=== PATIENT | male | born 2000 | race Caucasian/White ===

== ENCOUNTER 2023-06-28 09:53 | Outpatient (RCR) | payer SELFPAY | END 2023-08-24 15:09 | disposition home or self-care (01) | LOC: PT 09:53 | DX: Z98.890 Other specified postprocedural states (principal) | CPT/HCPCS: 97110; 97161 ==

== ENCOUNTER 2024-06-05 16:34 | Outpatient (OUT) | payer SELFPAY ==
--- NOTE | 2024-06-05 16:47 | XR_ITS ---
[facility] [id number] Patient Name: GENEVIEVE CHUA MRN: [id number] date: 2000 Sex: M Assigned Patient Location: [facility] Current Patient Location: [facility] Accession/Order Number: [id number] Exam Date: 06/05/2024 17:10 Report Date: 06/07/2024 20:03 At the request of: GODWIN PALMER Procedure: XR thoracic spine 2V EXAMINATION: XR cervical spine 2-3V, XR thoracic spine 2V HISTORY: NECK PAIN COMPARISON: No relevant comparison available. FINDINGS: BONES: Normal alignment of the cervical and thoracic vertebral bodies with no acute fracture or spondylolisthesis. No significant degenerative change DISC SPACES: Normal. No significant disc height narrowing, subluxation, or endplate abnormality. PARASPINOUS: Negative. No paraspinous abnormality is seen. OTHER: Negative. XR/XR thoracic spine 2V IMPRESSION: No acute abnormality of the cervical or thoracic spine Electronically authenticated by: MURIEL MENDEZ Date: 06/07/2024 20:03
--- NOTE | 2024-06-05 16:47 | XR_ITS ---
[facility] [id number] Patient Name: GENEVIEVE CHUA MRN: [id number] date: 2000 Sex: M Assigned Patient Location: [facility] Current Patient Location: [facility] Accession/Order Number: [id number] Exam Date: 06/05/2024 17:10 Report Date: 06/07/2024 20:03 At the request of: GODWIN PALMER Procedure: XR cervical spine 2-3V EXAMINATION: XR cervical spine 2-3V, XR thoracic spine 2V HISTORY: NECK PAIN COMPARISON: No relevant comparison available. FINDINGS: BONES: Normal alignment of the cervical and thoracic vertebral bodies with no acute fracture or spondylolisthesis. No significant degenerative change DISC SPACES: Normal. No significant disc height narrowing, subluxation, or endplate abnormality. PARASPINOUS: Negative. No paraspinous abnormality is seen. OTHER: Negative. XR/XR cervical spine 2-3V IMPRESSION: No acute abnormality of the cervical or thoracic spine Electronically authenticated by: MURIEL MENDEZ Date: 06/07/2024 20:03
--- OUTSIDE RECORDS SUMMARY | 2024-06-05 16:53 | XMS_ITS | CCD ---
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 Name Role Phone Pcp, None Primary Care Provider Unavailabl e Provider , Unlisted Primary Care Provider Unav ailable Pcp, None Primary Care Provider UnavailHILDA Lobo Attending Unavailable HILDA MESA Referring Unavailable PCP, NONE Primary Care Unavailable HILDA MESA Attending Unavailable PCP, NONE Primary Care Unavailable HILDA MESA Referring Unavailable HILDA MESA Attending Unavailable HILDA MESA Referring Unavailable PCP, NONE Primary Care Unavailable HILDA MESA Attending Unavailable HILDA MESA Referring Unavailable PCP, NONE Primary Care Unavailable PCP, NONE Primary Care Unavailable HILDA MESA Referring Unavailable HILDA MESA Attending Unavailable CAMILLE LOPEZ Referring Unavailable PCP, NONE Primary Care Unavailable SIOBHAN MANNING Attending Unavailable HILDA MESA Attending Unavailable PCP, NONE Primary Care Unavailable SIOBHAN JAEGER Referring Unavailable HILDA MESA Attending Unavailable HILDA MESA Referring Unavailable PCP, NONE Primary Care Unavailable HILDA MESA Attending Unavailable SIOBHAN JAEGER Referring Unavailable PCP, NONE Primary Care Unavailable HILDA MESA Attending Unavailable HILDA MESA Referring Unavailable PCP, NONE Primary Care Unavailable YANCIURMAN, OSEI Referring Unavailable OSEI ABARCA Attending Unavailable PCP, NONE Primary Care Unavailable HILDA MESA Attending Unavailable HILDA MESA Admitting Unavailable HILDA MESA Referring Unavailable PCP, NONE Primary Care Unavailable SCEURMAN, OSEI Referring Unavailable SCEURMAN, OSEI Attending Unavailable PCP, NONE Primary Care Unavailable SCEURMAN, OSEI Referring Unavailable MERVINMAN, OSEI Attending Unavailable PCP, NONE Primary Care Unavailable HILDA MESA Attending Unavailable HILDA MESA Referring Unavailable PCP, NONE Primary Care Unavailable HILDA MESA Attending Unavailable HILDA MESA Admitting Unavailable PCP, NONE Primary Care Unavailable Medications Current Medications Medication Drug Class(es) Dates Sig (Normalized) Sig (Original) acetaminophen 500 mg oral tablet (3 sources) Start: 05-30-2023 take 1 tablet by mouth every six hours as needed acetaminophen 500 MG tablet Take 1 tablet by mouth every 6 hours as needed for Pain. 30 tablet 0 05/30/2023 Active Start: 05-30-2023 End: 05-30-2023 acetaminophen (TYLENOL) tabl et 975 mg Start: 07-05-2020 End: 07-05-2020 acetaminophen (TYLENOL) tabl et 1,000 mg aspirin 325 mg oral tablet (1 source) Platelet Aggregation Inhibitor, Nonsteroidal Anti-inflammatory Drug Start: 05-30-2023 take 1 tablet by mouth once daily Aspirin 325 MG tablet Take 1 tablet by mouth daily. 21 tablet 0 05/30/2023 Active Start: 05-30-2023 take 1 tablet by sandeep th once daily Aspirin 325 MG tablet Take 1 tablet by mouth daily. 21 tablet 0 05/30/2023 Active cyclobenzaprine hydrochloride 10 mg oral tablet (7 sources) Muscle Relaxant Start: 02-07-2022 End: 05-30-2023 take 1 tablet by mouth three times daily as needed for muscle spasms cyclobenzaprine (FLEXERIL) 10 MG tablet Take 1 tablet by mouth 3 times daily as needed for Muscle spasms. 15 tablet 0 02/07/2022 05/30/2023 Discontinued (Discontinued during inpatient admission) dextromethorphan hydrobromide 2 mg/ml / guaiFENesin 20 mg/ml oral suspension (6 sources) Uncompetitive S-kxmxgm-T-asparta te Receptor Antagonist, Sigma-1 Agonist Start: 02-16-2022 End: 05-30-2023 dextromethorphan-guai fenesin (ROBITUSSIN-DM) 10-100 MG/5ML SYRP Indications: Acute URI , Viral illness Take 10 mLs by mouth every 6 hours as needed for Cough. 236 mL 0 02/16/2022 05/30/2023 Discontinued (Discontinued during inpatient admission) methylPREDNISolone (1 source) Corticosteroid Start: 07-12-2021 End: 02-07-2022 methylPREDNISolone (MEDROL DOSEPAK) 4 MG tablet Indications: Tear of LCL (lateral collateral ligament) of knee, right, subsequent encounter , Strain of distal biceps femoris tendon follow package directions 21 tablet 0 07/12/2021 02/07/2022 Discontinued naproxen 500 mg oral tablet (15 sources) Nonsteroidal Anti-inflammatory Drug Start: 05-30-2023 take 1 tablet by mouth twice daily at mealtime naproxen (NAPROSYN) 500 MG tablet Take 1 tablet by mouth 2 times daily (with meals). 30 tablet 0 05/30/2023 Active Start: 02-09-2023 End: 05-30-2023 take 1 tablet by mouth twice daily at mealtime as needed for pain naproxen (NAPROSYN) 375 MG tablet Take 1 tablet by mouth 2 times daily (with meals). Prn shoulder pain 10 tablet 0 02/09/2023 05/30/2023 Discontinued (Discontinued during inpatient admission) Start: 02-07-2022 take 1 tablet by sandeep th twice daily at mealtime naproxen (NAPROSYN) 375 MG tablet Take 1 tablet by mouth 2 times daily (with meals). 30 tablet 0 02/07/2022 Active Start: 11-12-2019 End: 02-07-2022 take 1 tablet by mouth three times daily naproxen (NAPROSYN) 500 MG tablet Take 1 tablet by mouth three times daily. 15 tablet 0 11/12/2019 02/07/2022 Discontinued Start: 03-23-2019 End: 11-12-2019 take 1 tablet by mouth twice daily naproxen (NAPROSYN) 500 MG tablet Take 1 tablet by mouth two times a day. 15 tablet 0 03/23/2019 11/12/2019 Discontinued omeprazole 20 mg delayed release oral capsule (7 sources) Proton Pump Inhibitor Start: 02-07-2022 End: 05-30-2023 take 1 capsule by mouth once daily omeprazole (PRILOSEC) 20 MG capsule Take 1 capsule by mouth daily. 30 capsule 0 02/07/2022 05/30/2023 Discontinued (Discontinued during inpatient admission) ondansetron 4 mg disintegrating oral tablet (6 sources) Serotonin-3 Receptor Antagonist Start: 05-30-2023 take 1 tablet by mouth every eight hours as needed Ondansetron (ZOFRAN-ODT) 4 MG disintegrating tablet Take 1 tablet by mouth every 8 hours as needed for Nausea and/or Vomiting. Dissolve on tongue then swallow. 20 tablet 0 05/30/2023 Active Start: 07-05-2020 End: 02-07-2022 take 1 tablet by mouth every eight hours as needed for nausea and vomiting Ondansetron (ZOFRAN-ODT) 4 MG disintegrating tablet Take 1 tablet by mouth every 8 hours as needed for Nausea and/or Vomiting. Dissolve on tongue then swallow. 20 tablet 0 07/05/2020 02/07/2022 Discontinued oxyCODONE hydrochloride 5 mg oral tablet (1 source) Opioid Agonist Start: 05-30-2023 End: 06-06-2023 take 1 tablet by mouth every four hours as needed for pain oxyCODONE (ROXICODONE) 5 MG immediate release tablet Indications: Tear of right glenoid labrum, initial encounter Take 1 tablet by mouth every 4 hours as needed for Pain for up to 7 days. 28 tablet 0 05/30/2023 06/06/2023 Active predniSONE 10 mg oral tablet (3 sources) Start: 03-31-2021 take 5 tablets by mouth once daily, then take 3 tablets by mouth once daily predniSONE (DELTASONE) 10 MG tablet 5 tabs po qd x 3 days then 3 tabs po qd x 2 days 21 tablet 0 03/31/2021 Active sennosides, fci 8.6 mg oral tablet (1 source) Start: 05-30-2023 take 1 tablet by mouth once daily Senna (SENOKOT) 8.6 MG Take 1 tablet by mouth daily. 30 tablet 1 05/30/2023 Active Start: 05-30-2023 take 1 tablet by [facility] once daily Senna (SENOKOT) 8.6 MG Take 1 tablet by mouth daily. 30 tablet 1 05/30/2023 Active Completed/Discontinued Medications Medication Drug Class(es) Dates Sig (Normalized) Sig (Original) celecoxib 100 mg oral capsule (1 source) Nonsteroidal Anti-inflammatory Drug Start: 05-30-2023 End: 05-30-2023 celecoxib (CELEBREX) capsule 200 mg Gadoterate Meglumine (DOTAREM) injection 0.1 mL (1 source) Start: 04-02-2023 End: 04-02-2023 Gadoterate Meglumine (DOTAREM) injection 0.1 mL 1 ml ketorolac tromethamine 30 mg/ml cartridge (1 source) Nonsteroidal Anti-inflammatory Drug, Cyclooxygenase Inhibitor Start: 02-07-2022 End: 02-07-2022 Ketorolac (TORADOL) injection 30 mg Start: 02-07-2022 End: 02-07-2022 Ketorolac (TORADOL) injectio n 30 mg 10 ml lidocaine hydrochloride 10 mg/ml injection (1 source) Antiarrhythmic, Amide Local Anesthetic Start: 04-02-2023 End: 04-02-2023 Lidocaine HCl (XYLOCAINE) 1 % injection 5 mL LOCM iohexol (OMNIPAQUE 240 mg/ml) injection 3 mL (1 source) Start: 04-02-2023 End: 04-02-2023 LOCM iohexol (OMNIPAQUE 240 mg/ml) injection 3 mL Problems Active Problems Problem Classification Problem Date Documented Date Episodic/Chronic Joint disorders and dislocations; trauma-related (1 source) Derangement of right knee; Translations: [Unspecified dislocation of right knee, initial encounter] Episodic Nonspecific chest pain (1 source) Chest wall pain; Translations: [Chest wall pain] Episodic Open wounds of head; neck; and trunk (1 source) Laceration without foreign body of left eyelid and periocular area, initial encounter; Translations: [Eyebrow laceration, left, initial encounter] Episodic Other injuries and conditions due to external causes (1 source) Injury of head; Translations: [Injury of head, initial encounter] Episodic Other nervous system disorders (1 source) Other chronic pain; Translations: [Other chronic pain] Onset: 02-09-2023 Chronic Other non-traumatic joint disorders (1 source) Pain in right knee; Translations: [Pain in joint, lower leg] Episodic Other non-traumatic joint disorders (1 source) Tenderness on lateral joint line of knee; Translations: [Pain in right knee] Episodic Other non-traumatic joint disorders (1 source) Unstable knee; Translations: [Other instability, right knee] Episodic Other non-traumatic joint disorders (1 source) Shoulder pain; Translations: [Pain in right shoulder] Episodic Other upper respiratory infections (1 source) Acute upper respiratory infection; Translations: [Acute upper respiratory infection, unspecified] Episodic Residual codes; unclassified (1 source) Other specified postprocedural states; Translations: [Other specified postprocedural states] Onset: 06-07-2023 Episodic Spondylosis; intervertebral disc disorders; other back problems (1 source) Backache; Translations: [Dorsalgia, unspecified] Episodic Superficial injury; contusion (2 sources) Contusion of right hand; Translations: [Contusion of right hand, initial encounter] Episodic Unclassified (1 source) Post-Op Onset: 07-26-2023 Viral infection (1 source) Viral disease; Translations: [Viral infection, unspecified] Episodic Past or Other Problems Problem Classification Problem Date Documented Da te Episodic/Chronic Other non-traumatic joint disorders (1 source) Pain in right shoulder; Translations: [Pain in right shoulder] Onset: 02-27-2023 Episodic Sprains and strains (7 sources) Sprain of ligament of finger; Translations: [Unspecified sprain of right little finger, initial encounter] Onset: 04-25-2023 Episodic Results Test Name Value Interpretation Reference Range Facility XR SHOULDER RIGHT MIN 2 VIEW S (ROUTINE)on 06-07-2023 XR SHOULDER RIGHT MIN 2 VIEWS (ROUTINE) EXAM: XR SHOULDER RIGHT MIN 2 VIEWS (ROUTINE) HISTORY: Other specified postprocedural states: COMPARISON: 02/27/2023 TECHNIQUE: 3 views of the right shoulder FINDINGS: No acute displaced fracture or dislocation. The acromioclavicular joint is normally aligned. No bony destruction. Postsurgical changes noted in the inferior aspect of the glenoid. IMPRESSION: No acute bony abnormality. S/P arthroscopy of right shoulder Normal [facility] [employer] TYPE AND SCREENon 05-30-2023 ABO and Rh group Nom (Bld) Blood group A Rh(D) positive Normal [facility] Comment on above: Performed By: #### [id number] #### [facility] [address] [place] [address] Type and Screen- if not done in [place] 05-30-2023 ABO and Rh group Nom (Bld) Blood group A Rh(D) positive [email or web address] [email or web address] RNA Ab Qn (S) Negative [facility] BASIC METABOLIC PANELon 04-14 Calcium [Mass/Vol] 9.5 mg/dL Normal 8.4-10.4 [facility] Comment on above: Order Comment: PAT Performed By: #### [id number] #### [place] [address] [place] Chloride [Moles/Vol] 98 mmol/L Normal 96-109 [facility] Comment on above: Order Comment: PAT Performed By: #### [id number] #### [facility] [address] CO2 [Moles/Vol] 29 mmol/L Normal 22-30 [facility] Comment on above: Order Comment: PAT Performed By: #### [id number] #### [facility] [address] Creatinine [Mass/Vol] 0.94 mg/dL Normal 0.66-1.25 [facility] Comment on above: Order Comment: PAT Performed By: #### [id number] #### [place] [id number] GLOMERULAR FILTRATION RATE ML/MIN/1.73 SQ M.PREDICTED >90.0 Normal >=60.0 [facility] Comment on above: Order Comment: PAT Result Comment: eGFR calculation based on the Chronic Kidney Disease Epidemiology Collaboration (CKD-EPI) equation refit without adjustment for race. Categories in Chronic Kidney Disease (CKD) Category: GFR(mL/min/1.73m^2) Interpretation: G1* 90 or greater Normal or high G2* 60-89 Mild decrease G3a 45-59 Mild to moderate decrease G3b 30-44 Moderate to severe decrease G4 15-29 Severe decrease G5 14 or less Kidney failure *G1&G2: In the absence of evidence of kidney damage, neither GFR category G1 nor G2 fulfill the criteria for CKD Kidney Int Suppl.2013;3:1-150 Performed By: #### [id number] #### [facility] [address] Glucose [Mass/Vol] 59 mg/dL Low 65-100 [facility] Comment on above: Order Comment: PAT Performed By: #### [id number] #### [facility] [address] [place] [address] [facility] Potassium [Moles/Vol] 4.3 mmol/L Normal 3.6-5.1 [facility] Comment on above: Order Comment: PAT Performed By: #### [id number] #### [facility] [address] [place], [place] [address] Sodium [Moles/Vol] 141 mmol/L Normal 135-147 [facility] Comment on above: Order Comment: PAT Performed By: #### [id number] #### [address] Urea nitrogen [Mass/Vol] 15 mg/dL Normal 8-26 [facility] Comment on above: Order Comment: PAT Performed By: #### [id number] #### [address] CBCon 05-04-2023 Erythrocyte distribution width (RBC) [Ratio] 11.8 % Normal 11.5-14.5 [facility] Comment on above: Order Comment: PAT Performed By: #### [id number] #### [address] Hematocrit (Bld) [Volume fraction] 49.1 % Normal 37.7-51.1 [facility] Comment on above: Order Comment: PAT Performed By: #### [id number] #### [address] Hemoglobin (Bld) [Mass/Vol] 15.9 g/dL Normal 12.8-17.7 [facility] Comment on above: Order Comment: PAT Performed By: #### [id number] #### [address] MCH (RBC) [Entitic mass] 29.6 pg Normal 27.0-34.2 [facility] Comment on above: Order Comment: PAT Performed By: #### [id number] #### [address] MCHC (RBC) [Mass/Vol] 32.4 g/dL Normal 31.4-36.2 [facility] Comment on above: Order Comment: PAT Performed By: #### [id number] #### [address] MCV (RBC) [Entitic vol] 91.4 fL Normal 80.6-99 [facility] Comment on above: Order Comment: PAT Performed By: #### [id number] #### [address] PLATELET COUNT 301 x10*3/uL Normal 150-400 [facility] Comment on above: Order Comment: PAT Performed By: #### 4 [id number] #### [facility] [address] RED BLOOD CELL COUNT 5.37 x10*6/uL Normal 3.70-5.70 [facility] Comment on above: Order Comment: PAT Performed By: #### 4 [id number] #### [facility] [address] WHITE BLOOD CELLS 7.4 x10*3/uL Normal 4.3-10.3 [facility] Comment on above: Order Comment: PAT Performed By: #### 4 [id number] #### [facility] [address] BASIC METABOLIC PANELon 04-13 Has the patient fasted? No Normal [facility] Comment on above: Order Comment: PAT Performed By: #### 4 [id number] #### [facility] [address] MRI ARTHROGRAM SHOULDER RIGH T WITH IV CONTRASTon 04-02-2023 MRI ARTHROGRAM SHOULDER RIGHT WITH IV CONTRAST EXAM: MRI ARTHROGRAM SHOULDER RIGHT WITH IV CONTRAST REASON FOR EXAM: Shoulder pain, labral tear suspected, xray done. TECHNIQUE: Multiplanar, multisequence imaging of the right shoulder was performed following the uneventful intra-articular administration of contrast. See separate arthrogram report for procedure description. COMPARISON: Plain radiograph 02/27/2023. Prior MRI 04/02/2017 FINDINGS: Study mildly degraded by motion. The acromioclavicular joint is congruent. No significant narrowing of the supraspinatus outlet. Small amount of fluid is noted in the subacromial bursa. No significant narrowing of the supraspinatus outlet. The rotator cuff is grossly intact. The extracapsular biceps tendon is within the bicipital groove. Intracapsular biceps tendon is thickened with intermediate signal consistent with tendinosis. No tear identified. The rotator cuff musculature demonstrates symmetric bulk and signal. The humerus is centered on the glenoid. There is abnormal morphology and signal involving the posterior inferior labrum. There may be a chronic fracture deformity of the posterior inferior glenoid. The tear spans from the 9-10:00 position to the 7:00 position. This may have progressed slightly when compared with prior arthrogram. There may be a reverse Hill-Sachs deformity involving the humeral head suggesting prior posterior dislocation. There may also be a chronic Hill-Sachs deformity involving the posterior lateral humeral head. Contrast: Signal also extends into the anterior inferior labrum suggesting tear (series 3, images 9-11). This is new from prior arthrogram study. Normal variant anatomy the anterior superior labrum. The articular cartilage demonstrates low to intermediate grade chondrosis. No intra-articular body identified. The inferior glenohumeral ligament appears intact. The bone marrow signal is without acute fracture. The quadrilateral space is patent. No axillary lymphadenopathy. IMPRESSION: 1. Study mildly degraded by motion. 2. 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 There is slight propagation of the labral tear superiorly. 3. New anterior inferior labral tear. 4. Biceps tendinosis without tear. 5. Intact rotator cuff. 6. Mild subacromial bursitis. Pt c/o pain, subluxation, and catching for several years. Surgery 2014. Pt became very uncomfortable d/t pain. Refused to have additional repeat sequences. Best images possible. Normal [employer] RF Guidance for injection of Jointon 04-02-2023 [facility] Radiology Study observation (narrative) [employer] CT RECON RIGHTon 03-14-2023 CT RECON RIGHT EXAMINATION: CT SHOULDER RIGHT WITHOUT CONTRAST, CT RECON RIGHT HISTORY: Shoulder trauma, instability or dislocation suspected, x-ray done. Shoulder trauma with instability or dislocation suspected. Right shoulder pain. Glenoid labral tear. COMPARISON: Comparison made to right shoulder radiographs dated 02/27/2023. TECHNIQUE: Contiguous transaxial images obtained to the right shoulder without contrast. Coronal and sagittal reformations performed. Additionally, 3-D volume rendered reconstructions of the right shoulder/humeral head performed on a dedicated workstation overseen by radiologist. Dose reduction techniques were achieved by using automated exposure control and/or adjustment of mA and/or kV according to patient size and/or use of iterative reconstruction technique. FINDINGS: There is no acute displaced fracture or dislocation of the right shoulder. There is no osseous Bankart lesion. There is no acute Hill-Sachs deformity. There is mild flattening/concavity suggested at the anteromedial right humeral head, possibly representing an old reverse Hill-Sachs deformity. There is mild flattening/rounding of the right posterior/posteroinfer ior glenoid with subjacent anchor tracks, most consistent with prior posterior labral repair. The right glenohumeral and acromioclavicular joints are normal. Muscle bulk of the right rotator cuff is normal without atrophy or fatty infiltration. Evaluation of the right glenoid labrum is markedly limited on this noncontrast/non-arthro graphic CT examination. MR arthrography or arthroscopy would be more sensitive. IMPRESSION: 1. No acute displaced fracture or dislocation of the right shoulder. 2. No acute Hill-Sachs or osseous Bankart lesion identified. However, there is mild flattening/concavity suggested at the anteromedial right humeral head, possibly representing an old reversal Sachs deformity. Correlate with patient's history of posterior instability/prior posterior dislocation. 3. Mild flattening/rounding of the right posterior/posteroinfer ior glenoid with subjacent anchor tracks, most consistent with sequela of prior posterior instability and posterior labral repair. Correlate with patient's surgical history. 4. Normal muscle bulk of the right rotator cuff. 4. Evaluation of the right glenoid labrum is markedly limited on this nonarthrographic examination. MRI arthrography or arthroscopy would be much more sensitive. Shoulder trauma, instability or dislocation suspected, xray done, Right shoulder pain, Glenoid labral tear, right, initial encounter Normal [facility] CT SHOULDER RIGHT WITHOUT CO NTRASTon 03-14-2023 CT SHOULDER RIGHT WITHOUT CONTRAST EXAMINATION: CT SHOULDER RIGHT WITHOUT CONTRAST, CT RECON RIGHT HISTORY: Shoulder trauma, instability or dislocation suspected, x-ray done. Shoulder trauma with instability or dislocation suspected. Right shoulder pain. Glenoid labral tear. COMPARISON: Comparison made to right shoulder radiographs dated 02/27/2023. TECHNIQUE: Contiguous transaxial images obtained to the right shoulder without contrast. Coronal and sagittal reformations performed. Additionally, 3-D volume rendered reconstructions of the right shoulder/humeral head performed on a dedicated workstation overseen by radiologist. Dose reduction techniques were achieved by using automated exposure control and/or adjustment of mA and/or kV according to patient size and/or use of iterative reconstruction technique. FINDINGS: There is no acute displaced fracture or dislocation of the right shoulder. There is no osseous Bankart lesion. There is no acute Hill-Sachs deformity. There is mild flattening/concavity suggested at the anteromedial right humeral head, possibly representing an old reverse Hill-Sachs deformity. There is mild flattening/rounding of the right posterior/posteroinfer ior glenoid with subjacent anchor tracks, most consistent with prior posterior labral repair. The right glenohumeral and acromioclavicular joints are normal. Muscle bulk of the right rotator cuff is normal without atrophy or fatty infiltration. Evaluation of the right glenoid labrum is markedly limited on this noncontrast/non-arthro graphic CT examination. MR arthrography or arthroscopy would be more sensitive. IMPRESSION: 1. No acute displaced fracture or dislocation of the right shoulder. 2. No acute Hill-Sachs or osseous Bankart lesion identified. However, there is mild flattening/concavity suggested at the anteromedial right humeral head, possibly representing an old reversal Sachs deformity. Correlate with patient's history of posterior instability/prior posterior dislocation. 3. Mild flattening/rounding of the right posterior/posteroinfer ior glenoid with subjacent anchor tracks, most consistent with sequela of prior posterior instability and posterior labral repair. Correlate with patient's surgical history. 4. Normal muscle bulk of the right rotator cuff. 4. Evaluation of the right glenoid labrum is markedly limited on this nonarthrographic examination. MRI arthrography or arthroscopy would be much more sensitive. Shoulder trauma, instability or dislocation suspected, xray done, Right shoulder pain, Glenoid labral tear, right, initial encounter Normal [facility] XR SHOULDER RIGHT MIN 2 VIEW S (ROUTINE)on 02-27-2023 XR SHOULDER RIGHT MIN 2 VIEWS (ROUTINE) EXAM: XR SHOULDER RIGHT MIN 2 VIEWS (ROUTINE) HISTORY: Pain in right shoulder: COMPARISON: 03/15/2017 TECHNIQUE: 4 views of the right shoulder. FINDINGS: No acute displaced fracture or dislocation. The acromioclavicular joint is normally aligned. No bony destruction. IMPRESSION: No acute bony abnormality. Right shoulder pain, appt in office, images taken per dr protocol Normal [facility] XR Hand - right 3 Viewson NO ACUTE FINDINGS. [facility] XR HAND RIGHT MIN 3 VIEW (ROUTINE) 03/16/2022 4:21 AM EDT Indication: punched fan; pain to 5th metacarpal/5th digit Technique: Routine radiographs of the right hand were obtained. Comparison: None. Findings: Visualized osseous structures are normal in alignment and mineralization. No fractures noted. No joint destruction or dislocation. Soft tissues are unremarkable for age. [facility] Ry Gordon, - 03/16/2022 XR HAND RIGHT MIN 3 VIEW (ROUTINE) 03/16/2022 4:21 AM EDT Indication: punched fan; pain to 5th metacarpal/5th digit Technique: Routine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 ARTHREX [id number] Right 1 Implanted ANCHOR KNOTLESS 1.8 FIBERTAK WITH #2 SUTURE STERILE - SNA - [id number] Elverson Knotless 1.8 Fibertak with #2 Suture Sterile NA ARTHREX [id number] Right 1 Implanted Implant Material Name: ANCHOR KNOTLESS 1.8 FIBERTAK WITH #2 SUTURE STERILE - SNA - [id number] Name: ANCHOR KNOTLESS 1.8 FIBERTAK WITH #2 SUTURE STERILE - SNA - [id number] Name: suture anchor, biocomposite pushlock Name: ANCHOR KNOTLESS 1.8 FIBERTAK WITH #2 SUTURE STERILE - SNA - [id number] COMPLICATIONS: None FINDINGS: Recurrent posterior labral tear, anterior inferior labral tear intact biceps anchor DISPOSITION: awakened from anesthesia, extubated and taken to the recovery room in a stable condition, having suffered no apparent untoward event. CONDITION: doing well without problems Name: Abrahan Lawrence : 2000 Date of Surgery: 05/30/2023 Pre Operative Diagnosis: 1. 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 The assistance was felt to be medically necessary for the case due it its complexity, and the requirement for a skilled extra pair of hands due to the technical requirements of the procedure. Anesthesia: General Procedure Start Time: Event Time Procedure/Incision Start 817 Procedure End Time: Event Time Procedure End 1002 EBL: Minimal Implants: 1. 7 Arthrex knotless 1.8 fiber tack anchors 2. 1 bio composite push lock anchor Specimens: None Would Classification: Clean Findings: Recurrent posterior labral tear with evidence of old suture material, anterior inferior labral tear Complications: None Disposition: Hemodynamically stable and extubated and transferred to PACU. Will be discharged to home later today once PACU criteria are met. Indications for Procedure: 22-year-old male who sustained a right shoulder posterior instability event multiple years ago. He subsequently underwent a posterior labral repair. He did well for period of time after this, but had increasing amounts of shoulder pain and instability that progressed. Presented to my office with complaints of anterior and posterior instability. An MRI arthrogram showed recurrent posterior labral tear as well as likely anterior-inferior labral tear. Operative and nonoperative treatment was discussed with the patient, elected to proceed with right shoulder arthroscopy. Description of Procedure: The patient was met in the preoperative holding area. The consent was reviewed with the patient and all questions were answered. Following this, the patient confirmed the correct operative extremity and my initials were placed here. The skin overlying the extremity was evaluated and no rashes, lesions, or concerning signs for infection were identified. The consent was then signed. The anesthesia service met with the patient to discuss their portion of the procedure and consent was obtained for anesthesia. If applicable, a nerve block was offered to the patient for perioperative pain control. Following this, the patient was wheeled back to the operating room and transferred from the hospital cart to the OR table. Anesthesia was induced. Preoperative exam under anesthesia demonstrated humeral head was easily translated over the anterior glenoid rim and would spontaneously reduce and can be translated over the posterior glenoid rim and also spontaneously reduced. Negative sulcus.. Care was then taken to appropriately position the patient and pad all bony prominences and the patient was placed in lateral decubitus position. SCDs were placed onto the non operative lower extremities to help prevent blood clots. Approximately 15 pounds of traction were used, which was let down at the end of the case at approximate 1 and half hours. The appropriate extremity was then prepped with alcohol, hydrogen peroxide and chloroprep and draped in a standard sterile surgical fashion. Anatomic landmarks were identified and marked out to assist in incision planning. Prior to making an incision, a timeout was performed with the nursing and anesthesia staff confirming the correct patient, operative side, procedure, and any safety risks. Prior to skin incision, pre-operative antibiotics 2g of Cefazolin were indicated and confirmed to have been given by anesthesia. A standard posterior portal just inferior and medial to the lateral corner of the acromion was made with an 11 blade. Arthroscope was introduced into the joint. A anterior portal just lateral to the coracoid and entering the rotator interval was made with a spinal needle followed by a smooth cannula. Diagnostic arthroscopy of the shoulder revealed: 1. Biceps Tendon: Intact 2. Labrum: Superior labrum intact, recurrent posterior labral tear extending from the 6:30 position to 10 o'clock position, anterior inferior labral tear extending from the 5:30 position to 2:30 position. Small anterior sublabral foramen. 3. Subscapularis tendon: Intact 4. Glenoid: Fraying of the anterior posterior glenoid cartilage 5. Humeral head: Intact 6. Inferior axillary recess: No loose bodies noted 7. Articular surface of the rotator cuff: Intact with a small Hill-Sachs lesion Following her diagnostic arthroscopy, attention was turned to establishing her portals. We had a high posterior portal for the diagnostic arthroscopy. A low anterior portal just above the subscapularis was then established. An accessory superior lateral portal was then established using a percutaneous technique. The arthroscope was then transferred into this portal for further viewing during the operation. Following this a low posterior working portal was also established. Attention was first turned to the posterior labral repair. A probe easily fell into an interval between the glenoid and labrum, consistent with his recurrent tear. Old suture material was noted in this area which was also subsequently removed. Following this, Bankart elevator was brought in and used to elevate the labrum off the glenoid surface. Complete release was performed. A shaver was then used to debride frayed nonviable labral tissue followed by debridement of the glenoid surface greater bleeding bony surface to assist with labral healing. Following this, curved guide was brought in, and our low posterior anchor was placed at the approximate 6:30 position. Curved suture passer was then used to shuttle the repair stitch through the capsule labral tissue which was subsequently shuttled to the anchor and tensioned. This same maneuver was performed 3 additional times, going proximally up the posterior glenoid to the approximate 10 o'clock position. A total of 4 anchors were placed for a posterior labral repair. Attention was now turned to the anterior labral repair. Bankart elevator was again brought in and used to elevate the anterior inferior labrum. There is a small sublabral foramen around the 2:00 to 1 o'clock position. This was not close down with any of our repair. We have to see the subscapularis muscle belly indicating appropriate release of the anterior labrum. Shaver was brought in again used to debris frayed nonviable anterior labral tissue as well as the glenoid surface to create a bleeding bony surface to assist with tendon healing. Using additional curved suture guide, and her most inferior anchor was initially placed at the 5:30 position. We subsequently were shuttling the repair stitch through this when the shuttle stitch broke. We then subsequently cut the repair stitch, shuttled a suture tape through the anterior-inferior labrum, and subsequently used a push lock as her most inferior anchor which gained good purchase. Following this, and an additional 3 all suture fiber tack anchors were placed heading up the glenoid to the approximate 2:30 position. This then completed the anterior labral repair with again a total of 4 anchors. Following this, final arthroscopic images were taken. Our posterior portal site was closed with #1 Vicryl using a BirdBeak for suture passage. The portal sites were closed with 3-0 nylon. A dressing of Xeroform 4 x 4's ABDs and Medipore tape was then applied to the upper extremity. Extremities and placed into a sling and the patient was awoken from anesthesia and transferred the postanesthesia care in where he is recovering. The use of the 22 modifier is justified in this case due to the fact that it was a revision posterior labral repair with a new anterior labral tear repair. Additionally patient had a large tear extending from anterior to posterior which required additional anchors. This increased operative time as well as technical complexity of the case when compared to a standard labral repair. A count of sharps, needles, ray-juliann and lap sponges was performed at the end of the procedure. The count was correct. No concerns were raised by the operating room staff at the completion of the case. Discharge Summary: Patient was transferred to the postanesthesia care unit where the patient is recovering well. The patient will be discharged home later today. Prescriptions have been sent to the pharmacy for the patient and family to lemon picker after surgery. The patient will follow the anterior and posterior/circumferential labral repair PT protocol. DVT prophylaxis is indicated for this patient and a prescription for aspirin was sent to the pharmacy. The importance of adheres to DVT prophylaxis was stressed to the patient in their prior clinic visit and in the preoperative holding area. Patient will follow up with me in clinic in one week. Disposition: Patient was discharged to home with family after all PACU criteria were met. Hilda Mesa MD x Called, spoke with: Abrahan Left Message Date of Procedure: 05-30-23 Arrival Time: 529 Surgery Time: 729 Place: [facility], main entrance, Registration is to the left. Then proceed to the Second Floor Surgery Waiting Area to check in. Have you tested positive for Covid-19 in the last 4 weeks? Instructions: Please follow the surgeons instructions regarding diet and any other prep prior to surgery. If you did not receive diet instructions, NO solid food after 11 pm and this includes gum, candy, mints, lozenges, or chewing tobacco. Water and Gatorade (EXCLUDING red or orange) is encouraged up to 4 hours before your arrival to surgery. Do not consume alcohol 24 hours prior to you surgery. Refrain from smoking 12 hours prior to your surgery. You can brush your teeth on the morning of your procedure but do not swallow any water. IF the surgeons office or PAT gave you CHG wipes please shower the night before, wait one hour, then apply CHG wipes. DO NOT shower the morning of surgery and reapply CHG wipes. Do not use any body lotion or powder the morning of procedure. Please do not wear make-up. Please do not use hair spray, gel, mouse etc. Wear comfortable and loose clothing. Leave valuables at home except what is needed to take care of any financial obligations you may have. Contact lenses, body piercings and jewelry must be removed prior to procedure. You are allowed two vistors, must be 12 years of age or older, and you must have a bulk delivery driver to and from the hospital as well as a responsible person to stay with you for 24 hours. documented in this encounter [facility] 05-30-2023 Nurse Note Transported to room 2218 at this time per cart, accompanied by this nurse. Cart placed in lowest position, wheels locked, call light given to patient. Report given to and RUE assessed with Shira Verma RN, no changes from previous assessments by this nurse. Surgery waiting room phlebotomist lab assistant informed of patient's OPS room number. Dr. Collier here to assess patient, may transfer to next phase of care when PACU time completed. documented in this encounter [facility] 05-30-2023 Nurse Surgical operation note Transported to room 2218 at this time per cart, accompanied by this nurse. Cart placed in lowest position, wheels locked, call light given to patient. Report given to and RUE assessed with Shira Verma RN, no changes from previous assessments by this nurse. Surgery waiting room phlebotomist lab assistant informed of patient's OPS room number. [facility] 05-30-2023 Nurse Surgical operation note Dr. Collier here to assess patient, may transfer to next phase of care when PACU time completed. [facility] 05-30-2023 Surgery Surgical operation note Brief Procedure Note 05/30/2023,10:28 AM Hilda Mesa PATIENT INFORMATION Name: Abrahan Lawrence : 2000 Procedure Date: 05/30/2023 Event Time Procedure/Incision Start 0818 Event Time Procedure End 1002 Surgeon(s): Hilda Mesa MD PRE-OP DIAGNOSIS: Tear of right glenoid labrum, initial encounter [S43.431A] POST-OP DIAGNOSIS: Right anterior and posterior labral tear Procedure(s) (LRB): right shoulder arthroscopy with anterior and posterior labral repair (Right) ANESTHESIA ASA: I Type: General w/Block (for Post-op Pain Mgmt) Staff: Anesthesiologist: Ria Collier MD HEAD FIELD HOCKEY COACH: Harriet Davis APRN-HEAD FIELD HOCKEY COACH; Douglas Pina APRN-CRNA STAFF: Assistant Passenger Locomotive Engineer: Alberta Sal RN Scrub Person: Vilma Ybarra CST Nurse Float: Shobha Unger RN; Danette Archer RN Height: 6' (1.829 m) Weight:90.4 kg (199 lb 6.4 oz) BMI: Body mass index is 27.04 kg/m . ESTIMATED BLOOD LOSS: Minimal DRAINS: None TOTAL IV FLUIDS: See anesthesia ml SPECIMENS: None IMPLANTS: Implant Name Type Inv. Item Serial No. Power Tool Repair Technician Lot No. LRB No. Used Action ANCHOR KNOTLESS 1.8 FIBERTAK WITH #2 SUTURE STERILE - SNA - [id number] El[employer]on Knotless 1.8 Fibertak with #2 Suture Sterile NA ARTHREX [id number] Right 4 Implanted ANCHOR KNOTLESS 1.8 FIBERTAK WITH #2 SUTURE STERILE - SNA - [id number] [employer]on Knotless 1.8 Fibertak with #2 Suture Sterile NA ARTHREX [id number] Right 2 Implanted suture anchor, biocomposite pushlock NA ARTHREX [id number] Right 1 Implanted ANCHOR KNOTLESS 1.8 FIBERTAK WITH #2 SUTURE STERILE - SNA - [id number] [employer] Knotless 1.8 Fibertak with #2 Suture Sterile NA ARTHREX [id number] Right 1 Implanted Implant Material Name: ANCHOR KNOTLESS 1.8 FIBERTAK WITH #2 SUTURE STERILE - SNA - [id number] Name: ANCHOR KNOTLESS 1.8 FIBERTAK WITH #2 SUTURE STERILE - SNA - [id number] Name: suture anchor, biocomposite pushlock Name: ANCHOR KNOTLESS 1.8 FIBERTAK WITH #2 SUTURE STERILE - SNA - [id number] COMPLICATIONS: None FINDINGS: Recurrent posterior labral tear, anterior inferior labral tear intact biceps anchor DISPOSITION: awakened from anesthesia, extubated and taken to the recovery room in a stable condition, having suffered no apparent untoward event. CONDITION: doing well without problems [facility] 05-30-2023 Surgery Surgical operation note Name: Abrahan Lawrence : 2000 Date of Surgery: 05/30/2023 Pre Operative Diagnosis: 1. 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 The assistance was felt to be medically necessary for the case due it its complexity, and the requirement for a skilled extra pair of hands due to the technical requirements of the procedure. Anesthesia: General Procedure Start Time: Event Time Procedure/Incision Start 817 Procedure End Time: Event Time Procedure End 1002 EBL: Minimal Implants: 1. 7 Arthrex knotless 1.8 fiber tack anchors 2. 1 bio composite push lock anchor Specimens: None Would Classification: Clean Findings: Recurrent posterior labral tear with evidence of old suture material, anterior inferior labral tear Complications: None Disposition: Hemodynamically stable and extubated and transferred to PACU. Will be discharged to home later today once PACU criteria are met. Indications for Procedure: 22-year-old male who sustained a right shoulder posterior instability event multiple years ago. He subsequently underwent a posterior labral repair. He did well for period of time after this, but had increasing amounts of shoulder pain and instability that progressed. Presented to my office with complaints of anterior and posterior instability. An MRI arthrogram showed recurrent posterior labral tear as well as likely anterior-inferior labral tear. Operative and nonoperative treatment was discussed with the patient, elected to proceed with right shoulder arthroscopy. Description of Procedure: The patient was met in the preoperative holding area. The consent was reviewed with the patient and all questions were answered. Following this, the patient confirmed the correct operative extremity and my initials were placed here. The skin overlying the extremity was evaluated and no rashes, lesions, or concerning signs for infection were identified. The consent was then signed. The anesthesia service met with the patient to discuss their portion of the procedure and consent was obtained for anesthesia. If applicable, a nerve block was offered to the patient for perioperative pain control. Following this, the patient was wheeled back to the operating room and transferred from the hospital cart to the OR table. Anesthesia was induced. Preoperative exam under anesthesia demonstrated humeral head was easily translated over the anterior glenoid rim and would spontaneously reduce and can be translated over the posterior glenoid rim and also spontaneously reduced. Negative sulcus.. Care was then taken to appropriately position the patient and pad all bony prominences and the patient was placed in lateral decubitus position. SCDs were placed onto the non operative lower extremities to help prevent blood clots. Approximately 15 pounds of traction were used, which was let down at the end of the case at approximate 1 and half hours. The appropriate extremity was then prepped with alcohol, hydrogen peroxide and chloroprep and draped in a standard sterile surgical fashion. Anatomic landmarks were identified and marked out to assist in incision planning. Prior to making an incision, a timeout was performed with the nursing and anesthesia staff confirming the correct patient, operative side, procedure, and any safety risks. Prior to skin incision, pre-operative antibiotics 2g of Cefazolin were indicated and confirmed to have been given by anesthesia. A standard posterior portal just inferior and medial to the lateral corner of the acromion was made with an 11 blade. Arthroscope was introduced into the joint. A anterior portal just lateral to the coracoid and entering the rotator interval was made with a spinal needle followed by a smooth cannula. Diagnostic arthroscopy of the shoulder revealed: 1. Biceps Tendon: Intact 2. Labrum: Superior labrum intact, recurrent posterior labral tear extending from the 6:30 position to 10 o'clock position, anterior inferior labral tear extending from the 5:30 position to 2:30 position. Small anterior sublabral foramen. 3. Subscapularis tendon: Intact 4. Glenoid: Fraying of the anterior posterior glenoid cartilage 5. Humeral head: Intact 6. Inferior axillary recess: No loose bodies noted 7. Articular surface of the rotator cuff: Intact with a small Hill-Sachs lesion Following her diagnostic arthroscopy, attention was turned to establishing her portals. We had a high posterior portal for the diagnostic arthroscopy. A low anterior portal just above the subscapularis was then established. An accessory superior lateral portal was then established using a percutaneous technique. The arthroscope was then transferred into this portal for further viewing during the operation. Following this a low posterior working portal was also established. Attention was first turned to the posterior labral repair. A probe easily fell into an interval between the glenoid and labrum, consistent with his recurrent tear. Old suture material was noted in this area which was also subsequently removed. Following this, Bankart elevator was brought in and used to elevate the labrum off the glenoid surface. Complete release was performed. A shaver was then used to debride frayed nonviable labral tissue followed by debridement of the glenoid surface greater bleeding bony surface to assist with labral healing. Following this, curved guide was brought in, and our low posterior anchor was placed at the approximate 6:30 position. Curved suture passer was then used to shuttle the repair stitch through the capsule labral tissue which was subsequently shuttled to the anchor and tensioned. This same maneuver was performed 3 additional times, going proximally up the posterior glenoid to the approximate 10 o'clock position. A total of 4 anchors were placed for a posterior labral repair. Attention was now turned to the anterior labral repair. Bankart elevator was again brought in and used to elevate the anterior inferior labrum. There is a small sublabral foramen around the 2:00 to 1 o'clock position. This was not close down with any of our repair. We have to see the subscapularis muscle belly indicating appropriate release of the anterior labrum. Shaver was brought in again used to debris frayed nonviable anterior labral tissue as well as the glenoid surface to create a bleeding bony surface to assist with tendon healing. Using additional curved suture guide, and her most inferior anchor was initially placed at the 5:30 position. We subsequently were shuttling the repair stitch through this when the shuttle stitch broke. We then subsequently cut the repair stitch, shuttled a suture tape through the anterior-inferior labrum, and subsequently used a push lock as her most inferior anchor which gained good purchase. Following this, and an additional 3 all suture fiber tack anchors were placed heading up the glenoid to the approximate 2:30 position. This then completed the anterior labral repair with again a total of 4 anchors. Following this, final arthroscopic images were taken. Our posterior portal site was closed with #1 Vicryl using a BirdBeak for suture passage. The portal sites were closed with 3-0 nylon. A dressing of Xeroform 4 x 4's ABDs and Medipore tape was then applied to the upper extremity. Extremities and placed into a sling and the patient was awoken from anesthesia and transferred the postanesthesia care in where he is recovering. The use of the 22 modifier is justified in this case due to the fact that it was a revision posterior labral repair with a new anterior labral tear repair. Additionally patient had a large tear extending from anterior to posterior which required additional anchors. This increased operative time as well as technical complexity of the case when compared to a standard labral repair. A count of sharps, needles, ray-juliann and lap sponges was performed at the end of the procedure. The count was correct. No concerns were raised by the operating room staff at the completion of the case. Discharge Summary: Patient was transferred to the postanesthesia care unit where the patient is recovering well. The patient will be discharged home later today. Prescriptions have been sent to the pharmacy for the patient and family to lemon picker after surgery. The patient will follow the anterior and posterior/circumferential labral repair PT protocol. DVT prophylaxis is indicated for this patient and a prescription for aspirin was sent to the pharmacy. The importance of adheres to DVT prophylaxis was stressed to the patient in their prior clinic visit and in the preoperative holding area. Patient will follow up with me in clinic in one week. Disposition: Patient was discharged to home with family after all PACU criteria were met. Hilda Mesa MD [facility] 05-30-2023 Hospital Discharg e instructions Nas Mackey RN - 05/30/2023 7:18 AM EDT POST-OPERATIVE / DISCHARGE INSTRUCTIONS Please call Dr. Mesa with any post-operative questions or concerns at [phone]. If you leave a voicemail, he will return your call as soon as possible. PROCEDURE: Shoulder arthroscopy and Labral Repair PAIN MANAGEMENT The most commonly prescribed pain medications after surgery are opioid or narcotic medications such as Oxycodone, Oxycontin, Morphine, Dilaudid, Hydromorphone, Fentanyl, Hydrocodone, [place], Percocet, and Lortab. These medications are synthetic forms of heroin. Opioid medications are highly addictive and dangerous. Over 130 people of opioid overdose daily, with over 47,000 Americans dying in 2017 alone from opioid overdose. Many of these individuals first encountered opioids through a prescription. 10% of patients who are prescribed an opioid will go on to abuse these medications or become dependent upon them and as many as 5% of those who abuse these medications will go on to use heroin. Patients are generally uncomfortable after surgery. Surgery is never expected to be pain free. Dr. Mesa does not like his patients to have pain, but also asks patients to recognize that pain after surgery is expected, normal, and temporary. Pain after surgery should improve every hour and every day, while an opioid addiction may not go away. Many blinded, randomized studies have been conducted showing that the combination of Tylenol, an anti-inflammatory medication like Ibuprofen or Aleve, and ice provides equivalent pain relief to opioid pain medications. Outside of the [place], patients who undergo surgery are not prescribed opioid medications and have acceptable pain control with a combination of Tylenol, an anti-inflammatory medication, and ice. Dr. Mesa regularly prescribes opioids as he does not want his patients to be uncomfortable, but will only prescribe small doses and in small numbers of pills. These medications will not be prescribed before surgery or after [address] Mesa asks patients to avoid using opioid medications if possible because they are addictive and dangerous. Please use Tylenol, an anti-inflammatory, and ice before using an opioid pain medicine. Do not drive or make important business decisions while using narcotics. Common side effects of the narcotics include nausea, vomiting, drowsiness, constipation, and difficulty urinating. If you experience constipation, use an over the counter laxative. Minimize the risk of constipation by staying well hydrated and including fiber in your diet. If you have difficulty urinating, try spending a little time out of bed on the crutches. If it is not possible for you to urinate and you become uncomfortable, it is best if you go to the Emergency Room to get catheterized If you had a nerve block done by anesthesia, please contact the anesthesia department with questions. When the nerve block wears off, pain can increase so you may notice you will need more oral narcotics at that time. WOUND CARE Please leave dressing on until you are seen in clinic. There may be a small amount of bleeding and/or fluid leaking at the surgical site. This is normal. There will actually be more swelling on days 1-3 than you had the day of surgery. This is normal. SLING MANAGEMENT Your sling is to be on at all times for the first 4-6 weeks after surgery. This means wearing your sling while sleeping. Do not discontinue your sling until told to do so by Dr. Mesa. SLEEPING Again, you need to sleep in your sling after surgery. It may be helpful to sleep in a more upright position as in a reclining chair or propped up on pillows. It is typical to experience the most pain and discomfort at night after shoulder surgery. DRIVING You cannot drive until you have discontinued narcotic pain medications, and feel fully able to control your vehicle in an emergency. You must have good control of your surgical extremity to decrease risk of harming others. If you decide to operate a motor vehicle, you assume all risks and accept possible liability should an accident occur. Please contact our office should you have any questions about whether or not you can return to driving. You will not begin formal physical therapy until at least 2 weeks after surgery. Do not begin any formal therapy or receive any massage/chiropractic treatments until Dr. Mesa has cleared you to do so. We will provide you with a prescription for physical therapy when appropriate to begin. CONCERNS/QUESTIONS It is important to call our office, hospital on-call physician, your primary care doctor s office, an emergency room or dial immediately if any of the following occur: If you experience any adverse reactions to your pain medications. Fever (101 or greater), shaking, chills or sweats/night sweats Increased redness, swelling, warmth or pain in/around the incisions, non-clear drainage from the incision Calf swelling, redness, pain or warmth, cramps in your lower legs, loss of sensation to foot/toes, blue limb Chest pain, chest tightness, shortness of breath, difficulty breathing, heart palpitations Inability to have a bowel movement after 3 days and/or inability to urinate after 1 day Uncontrolled nausea/vomiting A fall or new injury to the surgical site If any of these concerns occur after-hours, please call [phone] and ask to speak to the on-call physician or go to the Emergency Room. IMPORTANT PHONE NUMBERS Office Number: [phone] Assembly Technician: [phone] After Hours Emergency Contact: . If you are unable to reach a nurse via this number, or have worsening symptoms, please head immediately to the emergency room. [facility] Physical Therapy - Ortho/Neuro Rehab: [phone] [facility] Physical Therapy - Center for Occupational and Outpatient Rehab: [phone] The following attachments cannot be sent through Care Everywhere.Sedation ([place])documented in this encounter [facility] 05-30-2023 History and physical note Abrahan Lawernce is an 22 y.o. male. Date of Service: 05/30/2023 Chief Complaint: Right shoulder pain History of present illness 22-year-old male presents today with right shoulder pain and instability. MRI physical examination consistent with labral tear. Patient presents today for shoulder arthroscopy. No significant changes noted Past Medical History: Past Medical History: Diagnosis Date ADHD (attention deficit hyperactivity disorder) Hypertension Past Surgical History: Procedure Laterality Date ARTHROSCOPY SHOULDER Right 10/19/2014 RIGHT SHOULDER ARTHROSCOPIC POSTERIOR LABRAL REPAIR, LIMITED DEBRIDEMENT OF GLENOHUMERAL JOINT performed by Chip Pfeiffer MD at [facility] OR No current facility-administered medications on file prior to encounter. Current Outpatient Medications on File Prior to Encounter Medication Sig Dispense Refill cyclobenzaprine (FLEXERIL) 10 MG tablet Take 1 tablet by mouth 3 times daily as needed for Muscle spasms. (Patient not taking: Reported on 02/27/2023) 15 tablet 0 dextromethorphan-guaifenesin (ROBITUSSIN-DM) 10-100 MG/5ML SYRP Take 10 mLs by mouth every 6 hours as needed for Cough. (Patient not taking: Reported on 02/27/2023) 236 mL 0 naproxen (NAPROSYN) 375 MG tablet Take 1 tablet by mouth 2 times daily (with meals). Prn shoulder pain (Patient not taking: Reported on 02/27/2023) 10 tablet 0 omeprazole (PRILOSEC) 20 MG capsule Take 1 capsule by mouth daily. (Patient not taking: Reported on 02/27/2023) 30 capsule 0 Immunization History Administered Date(s) Administered Tdap 07/05/2020 Allergies: No Known Allergies ROS Social History Socioeconomic History Marital status: Single Tobacco Use Smoking status: Every Day Packs/day: 0.25 Types: Cigarettes, E-Cig/Vaping Smokeless tobacco: Never Vaping Use Vaping Use: Every day Substances: Nicotine Devices: Disposable Substance and Sexual Activity Alcohol use: Yes Comment: occ Drug use: Yes Comment: occ Other Topics Concern Utilizes car seat and/or safety belt Yes Family History Problem Relation Age of Onset Arthritis Mother High blood pressure Father Mental illness Father Substance abuse Father Blood pressure 139/90, pulse 68, temperature 97.6 F (36.4 C), temperature source forehead, resp. rate 16, height 6' (1.829 m), weight 90.4 kg (199 lb 6.4 oz), SpO2 100 %. Physical Exam: Physical Exam No acute distress Right upper extremity: Skin overlying extremity intact Assessment: 22 male with right shoulder labral tear Plan: Proceed with right shoulder arthroscopy Active Problems: * No active hospital problems. * Hilda Mesa MD 05/30/2023 [facility] Work Phone: 05-30-2023 History and physical note Abrahan Lawrence is an 22 y.o. male. Date of Service: 05/30/2023 Chief Complaint: Right shoulder pain History of present illness 22-year-old male presents today with right shoulder pain and instability. MRI physical examination consistent with labral tear. Patient presents today for shoulder arthroscopy. No significant changes noted Past Medical History: Past Medical History: Diagnosis Date ADHD (attention deficit hyperactivity disorder) Hypertension Past Surgical History: Procedure Laterality Date ARTHROSCOPY SHOULDER Right 10/19/2014 RIGHT SHOULDER ARTHROSCOPIC POSTERIOR LABRAL REPAIR, LIMITED DEBRIDEMENT OF GLENOHUMERAL JOINT performed by Chip Pfeiffer MD at [facility] [place] No current facility-administered medications on file prior to encounter. Current Outpatient Medications on File Prior to Encounter Medication Sig Dispense Refill cyclobenzaprine (FLEXERIL) 10 MG tablet Take 1 tablet by mouth 3 times daily as needed for Muscle spasms. (Patient not taking: Reported on 02/27/2023) 15 tablet 0 dextromethorphan-guaifenesin (ROBITUSSIN-DM) 10-100 MG/5ML SYRP Take 10 mLs by mouth every 6 hours as needed for Cough. (Patient not taking: Reported on 02/27/2023) 236 mL 0 naproxen (NAPROSYN) 375 MG tablet Take 1 tablet by mouth 2 times daily (with meals). Prn shoulder pain (Patient not taking: Reported on 02/27/2023) 10 tablet 0 omeprazole (PRILOSEC) 20 MG capsule Take 1 capsule by mouth daily. (Patient not taking: Reported on 02/27/2023) 30 capsule 0 Immunization History Administered Date(s) Administered Tdap 07/05/2020 Allergies: No Known Allergies ROS Social History Socioeconomic History Marital status: Single Tobacco Use Smoking status: Every Day Packs/day: 0.25 Types: Cigarettes, E-Cig/Vaping Smokeless tobacco: Never Vaping Use Vaping Use: Every day Substances: Nicotine Devices: Disposable Substance and Sexual Activity Alcohol use: Yes Comment: occ Drug use: Yes Comment: occ Other Topics Concern Utilizes car seat and/or safety belt Yes Family History Problem Relation Age of Onset Arthritis Mother High blood pressure Father Mental illness Father Substance abuse Father Blood pressure 139/90, pulse 68, temperature 97.6 F (36.4 C), temperature source forehead, resp. rate 16, height 6' (1.829 m), weight 90.4 kg (199 lb 6.4 oz), SpO2 100 %. Physical Exam: Physical Exam No acute distress Right upper extremity: Skin overlying extremity intact Assessment: 22 male with right shoulder labral tear Plan: Proceed with right shoulder arthroscopy Active Problems: * No active hospital problems. * Hilda Mesa MD 05/30/2023 documented in this encounter [facility] 05-29-2023 Nurse Note x Called, spoke with: Abrahan Left Message Date of Procedure: 05-30-23 Arrival Time: 529 Surgery Time: 729 Place: [facility], main entrance, Registration is to the left. Then proceed to the Second Floor Surgery Waiting Area to check in. Have you tested positive for Covid-19 in the last 4 weeks? Instructions: Please follow the surgeons instructions regarding diet and any other prep prior to surgery. If you did not receive diet instructions, NO solid food after 11 pm and this includes gum, candy, mints, lozenges, or chewing tobacco. Water and Gatorade (EXCLUDING red or orange) is encouraged up to 4 hours before your arrival to surgery. Do not consume alcohol 24 hours prior to you surgery. Refrain from smoking 12 hours prior to your surgery. You can brush your teeth on the morning of your procedure but do not swallow any water. IF the surgeons office or PAT gave you CHG wipes please shower the night before, wait one hour, then apply CHG wipes. DO NOT shower the morning of surgery and reapply CHG wipes. Do not use any body lotion or powder the morning of procedure. Please do not wear make-up. Please do not use hair spray, gel, mouse etc. Wear comfortable and loose clothing. Leave valuables at home except what is needed to take care of any financial obligations you may have. Contact lenses, body piercings and jewelry must be removed prior to procedure. You are allowed two vistors, must be 12 years of age or older, and you must have a bulk delivery driver to and from the hospital as well as a responsible person to stay with you for 24 hours. [facility] 04-02-2023 Note The procedure includ ing risks and benefits were explained to the patient. The risks included bleeding and infection. All questions were answered. The patient verbally agreed to the procedure and signed the consent form. Preprocedural timeout was performed confirming the identity of the patient, the type of procedure, and the side of intervention. All were in agreement. A site was marked on the patient's right shoulder. The patient's right shoulder was prepped and draped in standard sterile fashion. Using 1% lidocaine, local anesthesia was achieved. A 22-gauge needle was advanced under fluoroscopic guidance to appropriate position. 1 mL of Omnipaque 240 was injected under fluoroscopy to confirm placement. 12 mL of a mixture of 2 mL Omnipaque, 0.1 mL of gadolinium and 15 mL of normal saline. The needle was removed, hemostasis was achieved and a band aid placed to the site. The patient was taken to MRI for post-procedure images. The patient tolerated the procedure without difficulty and was dismissed from the radiology department in stable condition. IMPRESSION: Technically successful right shoulder arthrogram pre-MRI Glenoid labral tear of right shoulder. Pt states pain in rt. Shoulder. Performed by Denny CardenasT- .4 min. Omni 240- 3ml Lido- 5ml Harjit- .1ml [employer] 04-02-2023 Note The procedure includ ing risks and benefits were explained to the patient. The risks included bleeding and infection. All questions were answered. The patient verbally agreed to the procedure and signed the consent form. Preprocedural timeout was performed confirming the identity of the patient, the type of procedure, and the side of intervention. All were in agreement. A site was marked on the patient's right shoulder. The patient's right shoulder was prepped and draped in standard sterile fashion. Using 1% lidocaine, local anesthesia was achieved. A 22-gauge needle was advanced under fluoroscopic guidance to appropriate position. 1 mL of Omnipaque 240 was injected under fluoroscopy to confirm placement. 12 mL of a mixture of 2 mL Omnipaque, 0.1 mL of gadolinium and 15 mL of normal saline. The needle was removed, hemostasis was achieved and a band aid placed to the site. The patient was taken to MRI for post-procedure images. The patient tolerated the procedure without difficulty and was dismissed from the radiology department in stable condition. IMPRESSION: Technically successful right shoulder arthrogram pre-MRI [facility] 04-02-2023 Hospital course Narrative Discharge Summary from Radiology Patient ID: Abrahan Lawrence [id number] 22 y.o. 2000 Final Diagnosis: Glenoid labral tear, right, initial encounter [S43.431A] Secondary Diagnosis: Procedures Done: Right shoulder arthrogram pre-MRI Complications: None History of Present Illness: Diagnoses During This Admission None Physical, Lab & X-Ray Findings: See Radiology Report Treatment: See Radiology Report Post Anes./Post Surgery Condition: Condition on Discharge: Outpatient Orders on Discharge/Follow-up Instructions: Given to patient Discharge Medications CONTINUE these medications which have NOT CHANGED cyclobenzaprine 10 MG tablet Dose: 10 mg 10 mg, Oral, 3 TIMES DAILY PRN Commonly known as: FLEXERIL dextromethorphan-guaifenesin 10-100 MG/5ML Syrp Dose: 10 mL 20 mg, Oral, EVERY 6 HOURS PRN Commonly known as: ROBITUSSIN-DM naproxen 375 MG tablet Dose: 375 mg 375 mg, Oral, 2 TIMES DAILY WITH MEALS, Prn shoulder pain Commonly known as: NAPROSYN omeprazole 20 MG capsule Dose: 20 mg 20 mg, Oral, DAILY Commonly known as: PRILOSEC Disposition: Patient was monitored in Radiology until dismissed from the Radiology Department. Follow up with: Referring Physician Signed: Denny Valverde Date: 04/02/2023 Time: 10:39 AM documented in this encounter [facility] 03-16-2022 Emergency department Note Pt arrives to the ED for rt hand pain and injury. 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 Noted with abrasions to the rt hand. Swelling noted too. documented in this encounter [facility] 02-07-2022 Emergency department Note Patient provided written and verbal discharge orders at this time. All questions and concerns addressed. IV and arm band room removed. Pt ambulates to triage c/o of back pain that has been going on for years now. Pt has chest pain that also started a few years ago. Alert and oriented x4. NAD noted. Skin p/w/d. documented in this encounter [facility] Evaluation note Diagnosis Acute [facility] of right [facility] Diagnosis Acute traumatic internal derangement of right knee, initial encounter Lateral joint line tenderness of knee, right Anterior lateral rotary instability of knee, right [facility] Diagnosis Musculoskeletal back pain- Primary [facility] Diagnosis Acute URI Acute upper respiratory infections of unspecified site Viral illness Unspecified viral infection, in conditions classified elsewhere and of unspecified site [facility] Diagnosis Contusion of right hand, initial encounter- Primary Sprain of right little finger, unspecified site of digit, initial encounter Abrasion of right little finger, initial encounter [facility] Diagnosis Right shoulder pain Pain in joint, shoulder region Glenoid labral tear, right, initial encounter [facility] Diagnosis Glenoid labral tear, right, initial encounter [facility] Diagnosis Glenoid labral tear, right, initial encounter documented in this encounter [facility]* Diagnosis Tear of right glenoid labrum, initial encounter documented in this encounter [facility] Discharge instructions* Attachments The following attachments cannot be sent through Care Everywhere. * Back: Stretches: Exercises (Burkinan Guamanian) [facility] Attachments The following attachments cannot be sent through Care Everywhere. * Abrasions (Burkinan Guamanian) * Contusion: Hand (Burkinan Guamanian) [facility] Procedure Authorization (Emergency) - Closed Specialty Diagnoses / Procedures Referred By Whit alatorre Referred To Contact Radiology Diagnoses Acute traumatic internal derangement of right knee, initial encounter Lateral joint line tenderness of knee, right Anterior lateral rotary instability of knee, right Procedures MRI Knee Right Without IV Contrast Nishant Dumont MD [address] [place] [address] [facility] [address] [place] [address] [facility] [address] [place] [phone] Referral ID Status Reason Start Date Expiration Date Visits Re quested Visits Authorized [id number] Closed 07/04/2021 08/03/2021 1 1 [facility] for referral (narrative)* Consultation (Routine) - Open Specialty Diagnoses / Procedures Referred By Whit alatorre Referred To Contact Family Medicine Diagnoses Musculoskeletal back pain Noemi Juares APRN [employer] [address] [place] [address] [facility] [address] [facility] [place] [address] Referral ID Status Reason Start Date Expiration Date Visits Re quested Visits Authorized [id number] Open 02/07/2022 03/09/2023 1 1 [facility] for referral (narrative)* Consultation (Routine) - Potential Duplicate Specialty Diagnoses / Procedures Referred By Contac t Referred To Contact Family Medicine Diagnoses Contusion of right hand, initial encounter Sprain of right little finger, unspecified site of digit, initial encounter Abrasion of right little finger, initial encounter Elif Erickson PA [address] [place] [address] [facility] [address] [place] [address] Referral ID Status Reason Start Date Expiration Date V isits Requested Visits Authorized [id number] Potential Duplicate 03/16/2022 04/15/2023 1 1 [facility] for referral (narrative)* Procedure Authorization (Routine) - Closed Specialty Diagnoses / Procedures Referred By Contac t Referred To Contact Radiology Diagnoses Right shoulder pain Glenoid labral tear, right, initial encounter Procedures CT Recon Right Hilda Mesa MD [address] [place] [address] [facility] [address] [place] [phone] Referral ID Status Reason Start Date Expiration Date Visits Re quested Visits Authorized [id number] Closed 02/27/2023 05/13/2023 1 1 * Procedure Authorization (Routine) - Closed Specialty Diagnoses / Procedures Referred By Contac t Referred To Contact Radiology Diagnoses Right shoulder pain Glenoid labral tear, right, initial encounter Procedures CT Shoulder Right without Contrast Hilda Mesa MD [address] [place] [address] [phone] Referral ID Status Reason Start Date Expiration Date Visits Re quested Visits Authorized [id number] Closed 02/27/2023 03/29/2023 1 1 [facility] for referral (narrative)* Procedure Authorization (Routine) - Closed Specialty Diagnoses / Procedures Referred By Contac t Referred To Contact Radiology Diagnoses Glenoid labral tear, right, initial encounter Procedures FL Pre MRI/CT Shoulder Injection ID INJECTION SHOULDER ARTHROGRAPHY/ CT/MRI ARTHG CHG FLUOROSCOPIC GUIDANCE NEEDLE PLACEMENT ADD ON Hilda Mesa MD [address] [place] [address] [place] [address] Referral ID Status Reason Start Date Expiration Date Visits Re quested Visits Authorized [id number] Closed 02/27/2023 06/13/2023 1 1 [facility] for referral (narrative)* Procedure Authorization (Routine) - Closed Specialty Diagnoses / Procedures Referred By Contac t Referred To Contact Radiology Diagnoses Glenoid labral tear, right, initial encounter Procedures MRI Arthrogram Shoulder Right With IV Contrast Hilda Mesa MD [address] [place] [address] [phone] Referral ID Status Reason Start Date Expiration Date Visits Re quested Visits Authorized [id number] Closed 03/15/2023 04/14/2023 1 1 [facility] for visit Narrative* Procedure Authorization (Emergency) - Closed Specialty Diagnoses / Procedures Referred By Contac t Referred To Contact Radiology Diagnoses Acute traumatic internal derangement of right knee, initial encounter Lateral joint line tenderness of knee, right Anterior lateral rotary instability of knee, right Procedures MRI Knee Right Without IV Contrast Nishant Dumont MD [address] [place] [address] [address] FELIPE [address] [place] [address] [place] [phone] Referral ID Status Reason Start Date Expiration Date Visits Re quested Visits Authorized [id number] Closed 07/04/2021 08/03/2021 1 1 [facility] Procedure Authorization (Routine) - Closed Specialty Diagnoses / Procedures Referred By Whit t Referred To Contact Radiology Diagnoses Right shoulder pain Glenoid labral tear, right, initial encounter Procedures CT Shoulder Right without Contrast Hilda Mesa MD [address] [place] [address] [phone] Referral ID Status Reason Start Date Expiration Date Visits Re quested Visits Authorized [id number] Closed 02/27/2023 03/29/2023 1 1 [facility] Procedure Authorization (Routine) - Closed Specialty Diagnoses / Procedures Referred By Whit t Referred To Contact Radiology Diagnoses Glenoid labral tear, right, initial encounter Procedures FL Pre MRI/CT Shoulder Injection ID INJECTION SHOULDER ARTHROGRAPHY/ CT/MRI ARTHG CHG FLUOROSCOPIC GUIDANCE NEEDLE PLACEMENT ADD ON Hilda Mesa MD [address] [place] [address] [phone] Referral ID Status Reason Start Date Expiration Date Visits Re quested Visits Authorized [id number] Closed 02/27/2023 06/13/2023 1 1 [facility] N[facility]* Procedure Authorization (Routine) - Closed Specialty Diagnoses / Procedures Referred By Whit t Referred To Contact Radiology Diagnoses Glenoid labral tear, right, initial encounter Procedures MRI Arthrogram Shoulder Right With IV Contrast Hilda Mesa MD [address] [facility] [place] [address] [facility] [address] [place] [phone] Referral ID Status Reason Start Date Expiration Date Visits Re quested Visits Authorized [id number] Closed 03/15/2023 04/14/2023 1 1 [facility] Summary Purpose Family History No Family History Records FoundNo Family History Records Found Advance Directives No Advanced Directives Records FoundDocuments on File Type Date Recorded Patient 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 Commodities Inspector Expl 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 Advance Directives and Living Will Power of Faculty Head Latest Code Status on File Code Status Date Activated Date Inactivated Comments Full Code 10/19/2014 10:44 AM 10/19/2014 5:24 PM Documents on File Type Date Recorded Patient 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 Commodities Inspector Expl anation Advance Directives and Living Will Power of Faculty Head Latest Code Status on File Code Status Date Activated Date Inactivated Comments Full Code 10/19/2014 10:44 AM 10/19/2014 5:24 PM Documents on File Type Date Recorded Patient 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 Commodities Inspector Expl anation Advance Directives and Living Will Power of Faculty Head DNR Documentation Documents on File Type Date Recorded Patient 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 Commodities Inspector Expl anation Advance Directives and Living Will Power of Faculty Head DNR Documentation Latest Code Status on File Code Status Date Activated Date Inactivated Comments Full Code 05/30/2023 5:48 AM 05/30/2023 11:05 AM Code Status History Code Status Date Activated Date Inactivated Comments Full Code 10/19/2014 10:44 AM 10/19/2014 5:24 PM Discharge Instructions * Attachments The following attachments cannot be sent through Care Everywhere. * Chest Pain: Musculoskeletal (Burkinan Guamanian) documented in this encounter* Attachments The following attachments cannot be sent through Care Everywhere. * Head Injury: Closed: General Info (Burkinan Guamanian) documented in this encounter Assessments Diagnosis Chest wall pain Painful respiration Diagnosis Eyebrow laceration, left, initial encounter Injury of head, initial encounter Reason for Referral Status Reason Specialty Diagnoses / Procedures Referred By Contact Referred To Contact Open Specialty Services Required Speech Pathology / Speech Therapy Diagnoses Injury of head, initial encounter Adriana Braden DO [address] [place] [phone] [facility] [address] [place] [address] Status Reason Specialty Diagnoses / Procedures Referred By Contact Referred To Contact Open Specialty Services Required Physical Therapy Diagnoses Injury of head, initial encounter BradenAdriana DO [address] [place] [address] [facility] [address] [place] [address] Status Reason Specialty Diagnoses / Procedures Referred By Contact Referred To Contact Open Family Medicine Diagnoses Eyebrow laceration, left, initial encounter Injury of head, initial encounter Sonali, DOTTY Major [address] [place] [address] [facility] [address] [facility] [address] [place] [address] Additional Source Comments (unrecognized sect ion and content) No Status Records FoundNo Status Records Found INFORMATION SOURCE (unrecogn ized section and content) DATE CREATED AUTHOR 03/20/2019 [facility] DATE CREATED AUTHOR AUTHOR'S ORGANIZ ATION 07/27/2023 Gopi [facility] Reason for Visit (unrecogniz ed section and content) Reason Comments Chest Pain Emesis Reason Comments Facial Pain left eyebrow injury Head Injury Reason Comments Back Pain Reason Comments Hand Injury Specialty Diagnoses / Procedures Referred By Contac t Referred To Contact Diagnoses Tear of right glenoid labrum, initial encounter Procedures Case Request Operating Room: SHOULDER ARTHROSCOPY WITH REPAIR OF ANTERIOR AND POSTERIOR ID SURGICAL ARTHROSCOPY SHOULDER CAPSULORRHAPHY ID UNLISTED PROCEDURE ARTHROSCOPY ID TENODESIS LONG TENDON BICEPS Osei Abarca APRN INFORMATION SECURITY ENGINEER [address] [place] [id number] Referral ID Status Reason Start Date Expiration Date V isits Requested Visits Authorized [id number] New Request 04/25/2023 05/26/2024 1 1 Scheduled Active and Recently Administ ered Medications (unrecognized section and content) Medication Order 02/05/2022 02/06/2022 02/07/2022 Ketorolac (TORADOL) injection 30 mg (COMPLETED) 30 mg, Intramuscular, ONCE, 1 dose, On Sat02/07/22 at 1022 0958 (Given - Provid er: Patricia Ding RN) Scheduled Medication Order 05/28/2023 05/29/2023 05/30/2023 acetaminophen (TYLENOL) tablet 975 mg (COMPLETED) 975 mg, Oral, ONCE PREOP, 1 dose, Starting on Mireille 05/30/23 at 0548, Until Discontinued, 1 dose within 2 hours of surgery, Withhold if patient has a past medical history of liver disease., Pre-op (OPS) 0626 (Given - Provid er: Noemi Barajas RN) ceFAZolin 2,000 mg in 0.9% NaCl 100 mL IVPB (COMPLETED) 2,000 mg, Intravenous, Administer over 30 Minutes, ONCE PREOP, 1 dose, Starting on Mireille 05/30/23 at 0548, Until Discontinued, Give within 1 hour of procedure, Pre-op (OPS), Indications: Perioperative Pharmacoprophylaxis 0628 (Handoff - Prov ider: Noemi Barajas RN)0744 (Given - Provider: Harriet Davis APRN-HEAD FIELD HOCKEY COACH) celecoxib (CELEBREX) capsule 200 mg (COMPLETED) 200 mg, Oral, ONCE PREOP, 1 dose, Starting on Mireille 05/30/23 at 0548, Until Discontinued, 1 dose within 2 hours of surgery, If patient is taking Celebrex previously then only 200mg within 2 hours of surgery will be given. If the patient has a sulfa allergy/intolerance then Naprosyn 500mg will be substituted., Pre-op (OPS) 0626 (Given - Provid er: Noemi Barajas RN) PRN Medication Order 05/28/2023 05/29/2023 05/30/2023 EPINEPHrine 10 mg/10 mL syringe (CANCELED) PRN, Starting on Mireille 05/30/23 at 0922, Until Mireille 05/30/23 at 1014, Intra-op 0922 (Given - Provid er: Hilda Mesa MD) Care Teams (unrecognized sec tion and content) [employer] Account Manager Relationship Specialty Start Date End Date Pcp, None [address] [place] [address] PCP - General 02/09/23 [employer] Account Manager Relationship Specialty Start Date End Date Provider, MD Art PCP - General Family Medicine 03/16/22 FOR RECORDS PERTAINING TO PATIENTS WHO ARE OR HAVE BEEN ENROLLED IN A CHEMICAL DEPENDENCY/SUBSTANCEABUSE PROGRAM, SOME INFORMATION MAY BE OMITTED. This clinical summary was aggregated from multiple sources. Caution should be exercised in using it in the provision of clinical care. This summary normalizes information from multiple sources, and as a consequence, information in this document may materially change the coding, format and clinical context of patient data. In addition, data may be omitted in some cases. CLINICAL DECISIONS SHOULD BE BASED ON THE PRIMARY CLINICAL RECORDS. [facility] [employer] [facility]. provides no warranty or guarantee of the accuracy or completeness of information in this document.
== END 2024-06-05 16:35 | disposition home or self-care (01) ==
PROVIDERS: PCP Nurse Practitioner Family; Visit Provider Nurse Practitioner Family
DX: M54.2 Cervicalgia (principal); M54.9 Dorsalgia, unspecified
CPT/HCPCS: 72040; 72070

== ENCOUNTER 2024-09-16 21:14 | Emergency (ER) | payer SELFPAY ==
--- OUTSIDE RECORDS SUMMARY | 2024-09-16 21:22 | XMS_ITS | CCD ---
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 VACCINE (Season Ended) [facility] Start: 07-09-2021 End: 07-09-2021 Patient encounter procedure 07/09/2021 Appointment Radiology Nishant Dumont MD [address] [place] [address] [facility] Start: 06-14-2021 Influenza vaccinatio n given INFLUENZA VACCINE (#1) [facility] Start: 06-14-2020 Influenza vaccinatio n given INFLUENZA VACCINE (#1) [facility] Start: 06-14-2019 Influenza vaccinatio n given INFLUENZA VACCINE (#1) [facility] Start: 2017 ANNUAL WELLNESS VISIT ANNUAL WELLNES S VISIT [facility] Start: 2011 Adult depression screening assessment DEPRESSION SCREENING [facility] Start: 2011 Depression screening using PHQ-9 (Patient Health Questionnaire 9) score DEPRESSION SCREENING [facility] Start: 2010 Diphtheria + pertuss is + tetanus vaccine (product) DTAP/TDAP/TD VACCINE (1 - Tdap) [facility] Start: 2010 Human papilloma viru s vaccination given HPV VACCINES (GARDASIL) (1 - Male 2-dose series) [facility] Start: 2010 Vaccination for naren n papillomavirus HPV VACCINES (GARDASIL) (1 - Male 2-dose series) [facility] Start: 2004 COVID-19 VACCINE (1) COVID-19 VACCIN E (1) [facility] Start: 05-02-2000 COVID-19 VACCINE (#1) COVID-19 VACCI NE (#1) [facility] End: 06-20-2021 COVID-19 (2019 NOVEL CORONAVIRUS) [facility] [email or web address] Work Phone: Comment on above: One Time for 1 Occur rences starting 06/20/2021 until 06/20/2021 End: 07-05-2020 CT Head Facial Bones 3D Without IV Contrast CT Head Facial Bones 3D Without IV Contrast Imaging JAZMINE One time imaging One time imaging for 1 Occurrences starting 07/05/2020 until 07/05/2020 [email or web address] Comment on above: One time imaging One time imaging for 1 Occurrences starting 07/05/2020 until 07/05/2020 CT Head Facial Bones 3D Without IV Contrast CT Head Facial Bones 3D Without IV Contrast Imaging JAZMINE 07/05/2020 1:41 PM EDT [email or web address] End: 03-14-2023 CT Shoulder - right WO contrast [facility] Work Phone: Comment on above: 1 Occurrences starti ng 03/14/2023 until 03/14/2023 End: 03-14-2023 CT Unspecified body region by reconstruction [email or web address] Comment on above: 1 Occurrences starti ng 03/14/2023 until 03/14/2023 End: 04-02-2023 MR Shoulder - right Arthrogram [facility] Work Phone: Comment on above: 1 Occurrences starti ng 04/02/2023 until 04/02/2023 End: 02-16-2022 SARS-COV-2, TMA [facility] Work Phone: Comment on above: One Time for 1 Occur rences starting 02/16/2022 until 02/16/2022 Standard ECG EKG 12 lead ECG JAZMINE 11/12/2019 5:25 PM [facility] End: 11-12-2019 Troponin I.cardiac [Mass/Vol] Troponin I Lab Timed Now Then Every 3hr for 2 Occurrences starting 11/12/2019 until 11/12/2019 [facility] Comment on above: Now Then Every 3hr f or 2 Occurrences starting 11/12/2019 until 11/12/2019 End: 11-12-2019 XR Chest Portable (1 View) XR Chest Portable (1 View) Imaging STAT One time imaging One time imaging for 1 Occurrences starting 11/12/2019 until 11/12/2019 [facility] Comment on above: One time imaging One time imaging for 1 Occurrences starting 11/12/2019 until 11/12/2019 XR Chest Portable (1 View) XR Chest Portable (1 View) Imaging STAT 11/12/2019 6:05 PM [facility] Immunizations Immunization Date Immunization Notes Care Provider Fa cility 07-05-2020 tetanus toxoid, redu rogelio diphtheria toxoid, and acellular pertussis vaccine, adsorbed [facility] 07-05-2020 diphtheria, tetanus toxoids and acellular pertussis vaccine, unspecified formulation [facility] 08-13-2014 influenza virus vacc ine, unspecified formulation [facility] Payers Date Payer Category Payer Medicaid [facility] [id number] 2021-Present [phone] [address] [place] [address] Medicaid [id number] 2021 Medicaid [facility] [id number] 2021-Present [phone] [address] [place] [address] Medicaid [id number] 2020 Unknown [facility] [employer] [id number] 2020-Present [phone] [address] [place] [address] [id number] 2020 Unknown [facility] [id number] 2020-Present [phone] [address] [place] [address] [id number] [id number] 2019 Unknown [facility] xxxxxxxxx 2019-Present xxxxxxxxx [id number] 2019 Unknown [facility] [id number] 2019-Present [id number] [id number] 1999 Unknown [id number] 2.16.840.1.257111.3.579.2.297 1999 Unknown [id number] 2.16.840.1.620049.3.579.2.297 1999 Unknown [id number] 2.16.840.1.144008.3.579.2.297 1999 Unknown [id number] 2.16.840.1.656672.3.579.2.297 1999 Unknown [id number] 2.16.840.1.963588.3.579.2.297 1999 Unknown [id number] 2.16.840.1.816937.3.579.2.297 1999 Unknown [id number] 2.16.840.1.217765.3.579.2.297 1999 Unknown [id number] 2.16.840.1.695823.3.579.2.297 1999 Unknown [id number] 2.16.840.1.300847.3.579.2.297 1999 Unknown [id number] 2.16.840.1.565558.3.579.2.297 1999 Unknown [id number] 2.16.840.1.819607.3.579.2.297 1999 Unknown [id number] 2.16.840.1.438892.3.579.2.297 1999 Unknown [id number] 2.16.840.1.695132.3.579.2.297 1999 Unknown [id number] 2.16.840.1.652037.3.579.2.297 1999 Unknown [id number] 2.16.840.1.066180.3.579.2.297 1999 Unknown [id number] 2.16.840.1.426339.3.579.2.297 Unknown [id number] Unknown [id number] Social History Date Type Detail Facility Start: 11-19-2013 End: 03-23-2019 Tobacco smoking status CAIS Never smoker [facility] Start: 03-23-2019 End: 03-16-2022 Alcohol intake Current non-drinker of alcohol (finding) [facility] Start: 2000 Sex Assigned At Not on file [facility] Start: 07-05-2020 End: 05-24-2023 Tobacco use and exposure Never used [facility] Start: 02-10-2023 End: 02-20-2023 Exposure to SARS-CoV-2 (event) Not sure [facility] Start: 02-07-2022 End: 05-24-2023 Tobacco smoking status [facility] Smokes tobacco daily [facility] History of tobacco use Cigarette Smoker [facility] History of tobacco use [facility] Start: 02-07-2022 End: 05-30-2023 Cigarettes smoked current (pack per day) - Reported 0.5 [facility] Start: 02-27-2023 Alcohol intake Ex-drinker (finding) [facility] Start: 05-30-2023 Alcohol intake Current drinke r of alcohol (finding) [facility] Start: 05-30-2023 Tobacco use panel [facility] Start: 05-24-[address] [facility] Medical Equipment Procedure Code Equipment Code Equipment Origin al Text Equipment Identifier Dates *Suture [place] Juggerknot 1.4mm - Sna - [id number] Start: 10-19-2014 [place] Knotless 1.8 Fibertak With #2 Suture Sterile - Sna - [id number] Start: 05-30-2023 Clinical Notes 02-07-2022 to [...] free from injury Outcome: Adequate for Discharge [facility] 05-30-2023 Miscellaneous Notes Pt IV removed. Pt [...] Pain Mgmt) Staff: Anesthesiologist: Ria Collier MD HEAT REGULATOR: Harriet Davis APRN-CRNA; Douglas Pina APRN-CRNA STAFF: Restaurant General Manager: Alberta Sal RN Scrub Person: Vilma Ybarra CST Nurse Float: Shobha Unger RN; Danette Archer RN Height: 6' (1.829 m) Weight:90.4 kg (199 lb 6.4 oz) BMI: Body mass index is 27.04 kg/m . ESTIMATED BLOOD LOSS: Minimal DRAINS: None TOTAL IV FLUIDS: See anesthesia ml SPECIMENS: None IMPLANTS: Implant Name Type Inv. Item Serial No. Events Manager Lot No. LRB No. Used Action ANCHOR KNOTLESS 1.8 FIBERTAK WITH #2 SUTURE STERILE - SNA - [id number] [place] Knotless 1.8 Fibertak with #2 Suture Sterile NA ARTHREX [id number] Right 4 Implanted ANCHOR KNOTLESS 1.8 FIBERTAK WITH #2 SUTURE STERILE - SNA - [id number] [place] Knotless 1.8 Fibertak with #2 Suture Sterile NA ARTHREX [id number] Right 2 Implanted suture anchor, biocomposite pushlock NA ARTHREX [id number] Right 1 Implanted ANCHOR KNOTLESS 1.8 FIBERTAK WITH #2 SUTURE STERILE - SNA - [id number] [place] Knotless 1.8 Fibertak with #2 Suture Sterile NA ARTHREX [id number] Right 1 Implanted Implant Material Name: ANCHOR KNOTLESS 1.8 FIBERTAK WITH #2 SUTURE STERILE - SNA - [id number] Name: ANCHOR KNOTLESS 1.8 FIBERTAK WITH #2 SUTURE STERILE - SNA - [id number] Name: suture anchor, biocomposite pushlock Name: ANCHOR KNOTLESS 1.8 FIBERTAK WITH #2 SUTURE STERILE - SNA - [id number] COMPLICATIONS: None FINDINGS: Recurrent posterior labral tear, [...] shoulder arthroscopy with labral repair CPT Codes: 49036 - Labral Repair -22 modifier (Please see [...] pharmacy for the patient and family to hop picker after surgery. The patient will follow [...] Arrival Time: 529 Surgery Time: 729 Place: [facility], main entrance, Registration is to the left. [...] or older, and you must have a commercial truck driver to and from the hospital as well as a responsible person to stay with you for 24 hours. documented in this encounter [facility] 05-30-2023 Nurse Note Transported to room 2218 at this time per cart, accompanied by this nurse. Cart placed in lowest position, wheels locked, call light given to patient. Report given to and RUE assessed with Shira Verma RN, no changes from previous assessments by this nurse. Surgery waiting room perinatal specialist informed of patient's OPS room number. Dr. Collier here to assess patient, may transfer to next phase of care when PACU time completed. documented in this encounter [facility] 05-30-2023 Nurse Surgical operation note Transported to room 2218 at this time per cart, accompanied by this nurse. Cart placed in lowest position, wheels locked, call light given to patient. Report given to and RUE assessed with Shira Verma RN, no changes from previous assessments by this nurse. Surgery waiting room perinatal specialist informed of patient's OPS room number. [facility] 05-30-2023 Nurse Surgical operation note Dr. Collier here to assess patient, may transfer to next phase of care when PACU time completed. [facility] 05-30-2023 Surgery Surgical operation note Brief Procedure [...] Pain Mgmt) Staff: Anesthesiologist: Ria Collier MD HEAT REGULATOR: Harriet Davis APRN-HEAT REGULATOR; Douglas Pina APRN-CRNA STAFF: Restaurant General Manager: Alberta Sal RN Scrub Person: Vilma Ybarra CST Nurse Float: Shobha Unger RN; Danette Archer RN Height: 6' (1.829 m) Weight:90.4 kg (199 lb 6.4 oz) BMI: Body mass index is 27.04 kg/m . ESTIMATED BLOOD LOSS: Minimal DRAINS: None TOTAL IV FLUIDS: See anesthesia ml SPECIMENS: None IMPLANTS: Implant Name Type Inv. Item Serial No. Events Manager Lot No. LRB No. Used Action ANCHOR KNOTLESS 1.8 FIBERTAK WITH #2 SUTURE STERILE - SNA - [id number] [place] Knotless 1.8 Fibertak with #2 Suture Sterile NA ARTHREX [id number] Right 4 Implanted ANCHOR KNOTLESS 1.8 FIBERTAK WITH #2 SUTURE STERILE - SNA - [id number] [place] Knotless 1.8 Fibertak with #2 Suture Sterile NA ARTHREX [id number] Right 2 Implanted suture anchor, biocomposite pushlock NA ARTHREX [id number] Right 1 Implanted ANCHOR KNOTLESS 1.8 FIBERTAK WITH #2 SUTURE STERILE - SNA - [id number] [place] Knotless 1.8 Fibertak with #2 Suture Sterile NA ARTHREX [id number] Right 1 Implanted Implant Material Name: ANCHOR KNOTLESS 1.8 FIBERTAK WITH #2 SUTURE STERILE - SNA - [id number] Name: ANCHOR KNOTLESS 1.8 FIBERTAK WITH #2 SUTURE STERILE - SNA - [id number] Name: suture anchor, biocomposite pushlock Name: ANCHOR KNOTLESS 1.8 FIBERTAK WITH #2 SUTURE STERILE - SNA - [id number] COMPLICATIONS: None FINDINGS: Recurrent posterior labral tear, anterior inferior labral tear intact biceps anchor DISPOSITION: awakened from anesthesia, extubated and taken to the recovery room in a stable condition, having suffered no apparent untoward event. CONDITION: doing well without problems [facility] 05-30-2023 Surgery Surgical operation note Name: Abrahan Lawrence : 2000 Date of Surgery: 05/30/2023 Pre Operative Diagnosis: 1. 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 The patient will follow [...] PACU criteria were met. Hilda Mesa MD [facility] 05-30-2023 Hospital Discharg e instructions Nas Mackey RN - 05/30/2023 7:18 AM EDT POST-OPERATIVE / DISCHARGE INSTRUCTIONS Please call Dr. Mesa with any post-operative questions or concerns at [phone]. If you leave a voicemail, he will return your call as soon as possible. PROCEDURE: Shoulder arthroscopy and Labral Repair PAIN MANAGEMENT The most commonly prescribed pain medications after surgery are opioid or narcotic medications such as Oxycodone, Oxycontin, Morphine, Dilaudid, Hydromorphone, Fentanyl, Hydrocodone, [place], Percocet, and Lortab. These medications are synthetic [...] of these concerns occur after-hours, please call [phone] and ask to speak to the on-call physician or go to the Emergency Room. IMPORTANT PHONE NUMBERS Office Number: [phone] Solid Waste Engineer: [phone] After Hours Emergency Contact: . If you are unable to reach a nurse via this number, or have worsening symptoms, please head immediately to the emergency room. [facility]: [phone] [facility]: [phone] The following attachments cannot be sent through Care Everywhere.Sedation (Somali Malaysian)documented in this encounter [facility] 05-30-2023 History and physical note Abrahan Lawrence [...] JOINT performed by Chip Pfeiffer MD at [facility] No current facility-administered medications on file [...] hospital problems. * Hilda Mesa MD 05/30/2023 [facility] Work Phone: 05-30-2023 History and physical note [...] JOINT performed by Chip Pfeiffer MD at [facility] [place] No current facility-administered medications on file [...] Mesa MD 05/30/[address] encounter [facility] 05-29-2023 Nurse Note x Called, spoke with: Abrahan Left Message Date of Procedure: 05-30-23 Arrival Time: 529 Surgery Time: 729 Place: [facility], main entrance, Registration is to the left. [...] or older, and you must have a commercial truck driver to and from the hospital as well as a responsible person to stay with you for 24 hours. [facility] 04-02-2023 Note The procedure includ ing risks [...] Omni 240- 3ml Lido- 5ml Harjit- .1ml [email or web address] 04-02-2023 Note The procedure includ ing risks [...] Summary from Radiology Patient ID: Abrahan Lawrence [id number] 22 y.o. 2000 Final Diagnosis: Glenoid labral [...] Time: 10:39 AM documented in this encounter [facility] 03-16-2022 Emergency department Note Pt arrives to the ED for rt hand pain and injury. States punched the wall approx 30 minutes chairman emeritus. PT A & O. Resp reg. Noted with abrasions to the rt hand. Swelling noted too. documented in this encounter [facility] 02-07-2022 Emergency department Note Patient provided written [...] noted. Skin p/w/d. documented in this encounter [facility] Evaluation note Diagnosis Acute pain of right knee [facility] Acute traumatic internal derangement of right knee, initial encounter Lateral joint line tenderness of knee, right Anterior lateral rotary instability of knee, right [facility] Diagnosis Musculoskeletal back pain- Primary [facility] Diagnosis Acute URI Acute upper respiratory infections of unspecified site Viral illness Unspecified viral infection, in conditions classified elsewhere and of unspecified site [facility] Diagnosis Contusion of right hand, initial encounter- Primary Sprain of right little finger, unspecified site of digit, initial encounter Abrasion of right little finger, initial encounter [facility] Diagnosis Right shoulder pain Pain in joint, shoulder region Glenoid labral tear, right, initial encounter [facility] Diagnosis Glenoid labral tear, right, initial encounter [facility] Diagnosis Glenoid labral tear, right, initial encounter documented in this encounter [facility] note* Diagnosis Tear of right glenoid labrum, initial encounter documented in this encounter [facility] Discharge instructions* Attachments The following attachments cannot be sent through Care Everywhere. * Back: Stretches: Exercises (Somali Malaysian) [facility] Attachments The following attachments cannot be sent through Care Everywhere. * Abrasions (Somali Malaysian) * Contusion: Hand (Somali Malaysian) [facility] Procedure Authorization (Emergency) - Closed Specialty Diagnoses / Procedures Referred By Whit alatorre Referred To Contact Radiology Diagnoses Acute traumatic internal derangement of right knee, initial encounter Lateral joint line tenderness of knee, right Anterior lateral rotary instability of knee, right Procedures MRI Knee Right Without IV Contrast Nishant Dumont MD [address] [place] [address] [facility] [address] [place] [address] [facility] [address] [place] [id number] Referral ID Status Reason Start Date Expiration Date Visits Re quested Visits Authorized [id number] Closed 07/04/2021 08/03/2021 1 1 [facility] for referral (narrative)* Consultation (Routine) - Open Specialty Diagnoses / Procedures Referred By Whit alatorre Referred To Contact Family Medicine Diagnoses Musculoskeletal back pain Noemi Juares APRN PRINTING MACHINE MECHANIC [address] [place] [address] [facility] [address] [facility] [place] [address] Referral ID Status Reason Start Date Expiration Date Visits Re quested Visits Authorized [id number] Open 02/07/2022 03/09/2023 1 1 [facility] for referral (narrative)* Consultation (Routine) - Potential Duplicate Specialty Diagnoses / Procedures Referred By Contac t Referred To Contact Family Medicine Diagnoses Contusion of right hand, initial encounter Sprain of right little finger, unspecified site of digit, initial encounter Abrasion of right little finger, initial encounter Elif Erickson PA [address] [place] [address] [facility] [address] [place] [address] Referral ID Status Reason Start Date Expiration Date V isits Requested Visits Authorized [id number] Potential Duplicate 03/16/2022 04/15/2023 1 1 [facility] for referral (narrative)* Procedure Authorization (Routine) - Closed Specialty Diagnoses / Procedures Referred By Contac t Referred To Contact Radiology Diagnoses Right shoulder pain Glenoid labral tear, right, initial encounter Procedures CT Recon Right Hilda Mesa MD [address] [place] [address] [facility] [address] [place] [address] Referral ID Status Reason Start Date Expiration Date Visits Re quested Visits Authorized [id number] Closed 02/27/2023 05/13/2023 1 1 * Procedure Authorization (Routine) - Closed Specialty Diagnoses / Procedures Referred By Contac t Referred To Contact Radiology Diagnoses Right shoulder pain Glenoid labral tear, right, initial encounter Procedures CT Shoulder Right without Contrast Hilda Mesa MD [address] [place] [address] [address] Referral ID Status Reason Start Date Expiration Date Visits Re quested Visits Authorized [id number] Closed 02/27/2023 03/29/2023 1 1 [facility] for referral (narrative)* Procedure Authorization (Routine) - Closed Specialty Diagnoses / Procedures Referred By Contac t Referred To Contact Radiology Diagnoses Glenoid labral tear, right, initial encounter Procedures [place] Pre MRI/CT Shoulder Injection DE INJECTION SHOULDER ARTHROGRAPHY/ CT/MRI ARTHG CHG FLUOROSCOPIC GUIDANCE NEEDLE PLACEMENT ADD ON Hilda Mesa MD [address] [place] [address] [place] [address] Referral ID Status Reason Start Date Expiration Date Visits Re quested Visits Authorized [id number] Closed 02/27/2023 06/13/2023 1 1 [facility] for referral (narrative)* Procedure Authorization (Routine) - Closed Specialty Diagnoses / Procedures Referred By Contac t Referred To Contact Radiology Diagnoses Glenoid labral tear, right, initial encounter Procedures MRI Arthrogram Shoulder Right With IV Contrast Hilda Mesa MD [address] [place] [address] [address] Referral ID Status Reason Start Date Expiration Date Visits Re quested Visits Authorized [id number] Closed 03/15/2023 04/14/2023 1 1 [facility] for visit Narrative* Procedure Authorization (Emergency) - Closed Specialty Diagnoses / Procedures Referred By Contac t Referred To Contact Radiology Diagnoses Acute traumatic internal derangement of right knee, initial encounter Lateral joint line tenderness of knee, right Anterior lateral rotary instability of knee, right Procedures MRI Knee Right Without IV Contrast Nishant Dumont MD [address] [place] [address] DR FELIPE [address] [place] [address] [place] [phone] Referral ID Status Reason Start Date Expiration Date Visits Re quested Visits Authorized [id number] Closed 07/04/2021 08/03/2021 1 1 [facility] Procedure Authorization (Routine) - Closed Specialty Diagnoses / Procedures Referred By Whit t Referred To Contact Radiology Diagnoses Right shoulder pain Glenoid labral tear, right, initial encounter Procedures CT Shoulder Right without Contrast Hilda Mesa MD [address] [place] [address] [phone] Referral ID Status Reason Start Date Expiration Date Visits Re quested Visits Authorized [id number] Closed 02/27/2023 03/29/2023 1 1 [facility] Procedure Authorization (Routine) - Closed Specialty Diagnoses / Procedures Referred By Whit t Referred To Contact Radiology Diagnoses Glenoid labral tear, right, initial encounter Procedures [place] Pre MRI/CT Shoulder Injection DE INJECTION SHOULDER ARTHROGRAPHY/ CT/MRI ARTHG CHG FLUOROSCOPIC GUIDANCE NEEDLE PLACEMENT ADD ON Hilda Mesa MD [address] [place] [address] [address] Referral ID Status Reason Start Date Expiration Date Visits Re quested Visits Authorized [id number] Closed 02/27/2023 06/13/2023 1 1 [facility]* Procedure Authorization (Routine) - Closed Specialty Diagnoses / Procedures Referred By Whit t Referred To Contact Radiology Diagnoses Glenoid labral tear, right, initial encounter Procedures MRI Arthrogram Shoulder Right With IV Contrast Hilda Mesa MD [address] [facility] [place] [address] [facility] [address] [place] [phone] Referral ID Status Reason Start Date Expiration Date Visits Re quested Visits Authorized [id number] Closed 03/15/2023 04/14/[address] [facility] Summary Purpose Family History No Family History Records FoundNo Family History Records Found Advance Directives No Advanced Directives Records FoundDocuments on File Type Date Recorded Patient Field Care Advocate Expl anation Advance Directives and Living Will Power of Gun Stock Checker Latest Code Status on File Code Status Date Activated Date Inactivated Comments Full Code 10/19/2014 10:44 AM 10/19/2014 5:24 PM Documents on File Type Date Recorded Patient Field Care Advocate Expl anation Advance Directives and Living Will Power of Gun Stock Checker Latest Code Status on File Code Status Date Activated Date Inactivated Comments Full Code 10/19/2014 10:44 AM 10/19/2014 5:24 PM Documents on File Type Date Recorded Patient Field Care Advocate Expl anation Advance Directives and Living Will Power of Gun Stock Checker DNR Documentation Documents on File Type Date Recorded Patient Field Care Advocate Expl anation Advance Directives and Living Will Power of Gun Stock Checker DNR Documentation Latest Code Status on File Code Status Date Activated Date Inactivated Comments Full Code 05/30/2023 5:48 AM 05/30/2023 11:05 AM Code Status History Code Status Date Activated Date Inactivated Comments Full Code 10/19/2014 10:44 AM 10/19/2014 5:24 PM Discharge Instructions * Attachments The following attachments cannot be sent through Care Everywhere. * Chest Pain: Musculoskeletal (Somali Malaysian) documented in this encounter* Attachments The following attachments cannot be sent through Care Everywhere. * Head Injury: Closed: General Info (Somali Malaysian) documented in this encounter Assessments Diagnosis Chest wall pain Painful respiration Diagnosis Eyebrow laceration, left, initial encounter Injury of head, initial encounter Reason for Referral Status Reason Specialty Diagnoses / Procedures Referred By Contact Referred To Contact Open Specialty Services Required Speech Pathology / Speech Therapy Diagnoses Injury of head, initial encounter Adriana Braden DO [address] [place] [address] [facility] [address] [place] [id number] Status Reason Specialty Diagnoses / Procedures Referred By Contact Referred To Contact Open Specialty Services Required Physical Therapy Diagnoses Injury of head, initial encounter BradenAdriana DO [address] [place] [address] [facility] [address] [place] [address] Status Reason Specialty Diagnoses / Procedures Referred By Contact Referred To Contact Open Family Medicine Diagnoses Eyebrow laceration, left, initial encounter Injury of head, initial encounter Sonali, DOTTY Major [address] [place] [address] [facility] [address] [facility] [place] [address] [place] [address] Additional Source Comments (unrecognized sect ion and content) No Status Records FoundNo Status Records Found INFORMATION SOURCE (unrecogn ized section and content) DATE CREATED AUTHOR 03/20/[address] 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 [employer] [address] [place] [id number] Referral ID Status Reason Start Date Expiration Date V isits Requested Visits Authorized [id number] New Request 04/25/2023 05/26/2024 1 1 Scheduled [...] Barajas [phone] (Given - Provider: Harriet Davis APRN-HEAT REGULATOR) celecoxib (CELEBREX) capsule 200 mg (COMPLETED) 200 [...] Care Teams (unrecognized sec tion and content) Senior Site Manager Relationship Specialty Start Date End Date Pcp, None [address] [place] [address] PCP - General 02/09/23 Senior Site Manager Relationship Specialty Start Date End Date [...] BE BASED ON THE PRIMARY CLINICAL RECORDS. [facility]. provides no warranty or guarantee of the accuracy or completeness of information in this document.
[2024-09-16 21:29] VITALS: BP 129/79; PULSE 88; O2SAT 94; BMI 27.1
[2024-09-16 21:56] LABS: Internal Control Within Normal Limits; Strep A Antigen Screen Negative
[2024-09-16 22:01] LABS: Internal Control Within Normal Limits; SARS-CoV-2 Ag NEGATIVE (NEGATIVE)
--- NOTE | 2024-09-16 22:24 | XR_ITS ---
[address] [address] Patient Name: GENEVIEVE CHUA MRN: [id number] date: 2000 Sex: M Assigned Patient Location: ER Current Patient Location: ER Accession/Order Number: [id number] Exam Date: 09/16/2024 22:36 Report Date: 09/16/2024 23:24 At the request of: IGNACIO MARKER Procedure: XR chest 2V EXAM: XR chest 2V HISTORY: fever, cough COMPARISON: None. TECHNIQUE: 2 views of the chest FINDINGS: Lungs symmetrically and adequately inflated. No focal consolidation or evidence of pulmonary edema. No pneumothorax or significant pleural effusion. Normal cardiomediastinal contours. No acute osseous abnormality. XR/XR chest 2V IMPRESSION: No acute cardiopulmonary findings. Electronically authenticated by: AMADO ARCHER Date: 09/16/2024 23:24
--- NOTE | 2024-09-16 22:41 | ED_ITS ---
HPI - URI/Sore Throat General Chief Complaint: Upper Respiratory Infection Stated Complaint: Upper Respiratory Infection Time Seen by Provider: 09/16/24 22:15 History of Present Illness HPI Narrative: This 23-year-old male, smoker, presents for evaluation of sore throat, headache, nausea and bodyaches. The symptoms started yesterday. He states he has also been having some chills but has not taken his temperature. He has not had any vomiting or diarrhea. He denies any sick contacts. He has no lower extremity pain or swelling. He does not have any skin rash. No medications were taken prior to arrival. Related Data Allergies Allergy/AdvReac Type Severity Reaction Status Date / Time No Known Drug Allergies Allergy Verified 09/16/24 21:29 Review of Systems ROS Status of ROS 10 or more systems reviewed and unremark able except as noted in history and below PFSH PFSH Social History Little interest or pleasure in doing things: not at all Feeling down, depressed, or hopeless: not at all Exam Narrative Exam Narrative: Vital signs and Nursing Notes reviewed: Patient is afebrile with a normal pulse, normal blood pressure, he is borderline hypoxic with pulse ox of 94% on room air General: Alert, nontoxic male resting comfortably on the stretcher, no respiratory distress HEENT: Normocephalic atraumatic, mucous membranes are moist and pink, eyes are clear, normal conjunctiva, vision is grossly intact, posterior pharynx is mildly erythematous without exudates or swelling of the tonsillar pillars, no peritonsillar abscess appreciated Neck: Supple, no meningeal signs, no anterior or posterior cervical lymphadenopathy Chest: Lungs are clear to auscultation with good air entry, there is no wheezing rhonchi or rales appreciated no accessory muscle use, patient is speaking in complete sentences-no chest wall tenderness to palpation CVS: Regular rate and rhythm S1-S2, no murmurs rubs or gallops, pulses are brisk and equal bilaterally ABD: Soft, nondistended, nontender, no rebound guarding or rigidity, bowel sounds are normal, no pulsatile masses appreciated Extremities: Moving all extremities, no lower extremity tenderness or swelling noted, negative Homans' sign, pulses are brisk and equal bilaterally Skin: Normal in appearance without rash,pallor, petechiae or purpura Neuro: No focal deficits Constitutional Vital Signs, click to edit/add: Last Vital Signs Temp 98.5 F 09/16/24 22:45 Pulse 88 09/16/24 21:29 Resp 18 09/16/24 21:29 BP 129/79 09/16/24 21:29 Pulse Ox 94 L 09/16/24 21:29 O2 Del Method Room Air 09/16/24 21:29 Course Vital Signs Vital signs: Vital Signs Pulse Rate 88 09/16/24 21:29 Respiratory Rate 18 09/16/24 21:29 Blood Pressure 129/79 09/16/24 21:29 Pulse Oximetry 94 L 09/16/24 21:29 Oxygen Delivery Method Room Air 09/16/24 21:29 Temperature 98.5 F 09/16/24 22:45 Pulse Rate 88 09/16/24 21:29 Respiratory Rate 18 09/16/24 21:29 Blood Pressure 129/79 09/16/24 21:29 Pulse Oximetry 94 L 09/16/24 21:29 Oxygen Delivery Method Room Air 09/16/24 21:29 MDM - URI/Sore Throat MDM Narrative Medical decision making narrative: This 23-year-old male, smoker presents for evaluation of 2 days of sore throat, headache, body aches with nausea but no vomiting or diarrhea. His vital signs are stable. He had not taken any medications prior to arrival and he was afebrile. His physical exam is benign with some mild erythema of the tonsillar pillars. He is negative for strep and influenza. COVID-19 was added and a two- view chest x-ray was ordered. He was medicated emergency department with ibuprofen, Tylenol and Zofran. 2 view chest x-ray is negative for acute findings. Influenza is also normal. He will be discharged home with prescriptions for his symptoms including ibuprofen and Zofran. He was encouraged to drink plenty of fluids, rest and quit smoking. Lab Data Labs: Lab Results 09/16/24 09/16/24 Range/Units 21:37 23:13 Influenza Type A Ag Negative Influenza Type B Ag Negative SARS-CoV-2 Ag (CV2AG) Negative (NEGATIVE) Streptococcus Screen Negative Discharge Plan Discharge Chief Complaint: Upper Respiratory Infection Clinical Impression: Acute viral syndrome Patient Disposition: Home, Self-Care Time of Disposition Decision: 23:37 Condition: Good Print Language: Swedish Instructions: Viral Syndrome (ED) Referrals: GODWIN PALMER [Primary Care Provider] - 1 week
[2024-09-16 22:45] VITALS: TEMP 36.9
[2024-09-16] MEDS: ONDANSETRON 4 MG RAPDIS TABLET SL (22:45)
[2024-09-16] MEDS: ACETAMINOPHEN 325 MG TABLET 650 MG PO (22:46)
[2024-09-16] MEDS: IBUPROFEN 600 MG TABLET PO (22:46)
[2024-09-16 23:28] LABS: Influenza Virus A Antigen Negative; Influenza Virus B Antigen Negative; Internal Control Within Normal Limits
[2024-09-16 23:53] VITALS: PULSE 66; O2SAT 98
== END 2024-09-16 23:54 | disposition home or self-care (01) ==
PROVIDERS: Emergency Provider Emergency Medicine; PCP Nurse Practitioner Family
DX: B34.9 Viral infection, unspecified (principal); Z20.822 Contact with and (suspected) exposure to COVID-19
CPT/HCPCS: 71046; 87070; 87804; 87811; 87880; 99285; Q0162